=== PATIENT | female | born 1965 | race American Indian/Alaskan Native ===

== ENCOUNTER 2016-11-19 09:49 | Outpatient (CLI) | payer MEDICARE ==
--- NOTE | 2016-11-19 12:56 | Mammography Report ---
Bilateral digital screening mammogram with CAD. Comparison is made to the previous study on March 16, 2015. Findings: The breasts have a fibrofatty appearance, and the overall pattern is similar to the previous study. The MLO projections are suboptimal due to the patient's clinical condition, being in a wheelchair and unable to stand. There no mass lesions or suspicious calcifications. A single biopsy clip is noted on the left. There is no architectural distortion. Impression: Stable benign findings with above-noted technical limitations. BI-RADS code: 2. Recommendation: Annual screening.
== END 2016-11-19 09:50 | disposition home or self-care (01) ==
LOC: MAMMO 09:49
PROVIDERS: ATTEND Internal Medicine
DX: Z12.31 Encounter for screening mammogram for malignant neoplasm of breast (principal)
CPT/HCPCS: 77067; G0202

== ENCOUNTER 2017-12-17 09:13 | Outpatient (CLI) | payer MEDICARE ==
--- NOTE | 2017-12-18 16:13 | Mammography Report ---
BILATERAL DIGITAL SCREENING MAMMOGRAM with CAD: 12/17/17 09:13:00 CLINICAL: Routine screening. COMPARISON:11/19/16 FINDINGS: The examination was performed in a wheelchair, therefore positioning is less than optimal. The breasts are mostly fatty with scattered bilateral areas of fibroglandular density. Left inner biopsy clip. No mass, architectural distortion or suspicious calcifications. IMPRESSION: No mammographic evidence of malignancy. BI-RADS CATEGORY: 2 -- Benign RECOMMENDATION: Routine mammographic screening in one year. COMMENT: Patient follow-up letters are generated by our [employer] application.
== END 2017-12-17 09:14 | disposition home or self-care (01) ==
LOC: MAMMO 09:13
PROVIDERS: ATTEND Internal Medicine
DX: Z12.31 Encounter for screening mammogram for malignant neoplasm of breast (principal)
CPT/HCPCS: 77067

== ENCOUNTER 2018-09-27 07:17 | Day surgery (SDC) | payer MEDICARE ==
[2018-09-27] MEDS ORDERED: LACTATED RINGERS 1,000 ML IV SCH (08:00)
[2018-09-27] MEDS ORDERED: LEVAQUIN 250MG/50ML 250 MG/50 ML BAG IV NR (08:28)
[2018-09-27] MEDS ORDERED: DIPRIVAN 10 MG/ML IV ONE (09:15)
[2018-09-27] MEDS ORDERED: SUBLIMAZE ONE ×2 (09:15)
[2018-09-27] MEDS ORDERED: OMNIPAQUE (300 MG) IR ONE (09:55)
--- NOTE | 2018-09-27 10:31 | Post Operative Note ---
Date of procedure: 09/27/18 Pre-op diagnosis: heme Post-op diagnosis: same Findings: unremarkable Procedure: cysto rpgs Anesthesia: GETA Surgeon: SHASHANK ZAYAS Estimated blood loss: none Pathology: list (urine) Specimen disposition: to lab Condition: stable Disposition: PACU
--- NOTE | 2018-09-27 10:32 | Discharge Summary ---
Short Stay Discharge Plan Activity: other (no straining ) Weight Bearing Status: Full Weight Bearing Diet: regular, low fat, low cholesterol Special Instructions: other (inc fluids ) Follow up with: Baljinder RON MD [Primary Care Provider] - 7 Days SHASHANK ZAYAS MD [Staff Physician] - 6 Weeks
[2018-09-27] MEDS ORDERED: ZOFRAN IV PRN (10:41)
[2018-09-27] MEDS ORDERED: DILAUDID IV PRN (10:41)
--- NOTE | 2018-09-27 11:03 | Operative Report ---
PREOPERATIVE DIAGNOSES: Hematuria, mentally challenged. POSTOPERATIVE DIAGNOSES: Hematuria, mentally challenged. PROCEDURES: Cystoscopy, retrogrades examination. SURGEON: Brennan Benjamin M.D. ANESTHESIA: General. FINDINGS: This is a woman who is mentally challenged. She now presents with hematuria and for cystoscopy. DESCRIPTION OF PROCEDURE: The patient was brought to the operating room and placed on the operating table. Following induction of anesthesia, placed in lithotomy position, prepped and draped in usual sterile fashion. Cystourethroscopy showed a normal bladder. There was no trabeculation, no lesions. Bladder was well visualized with 30 and 70 degree lenses. Retrograde showed good filling, good drainage bilaterally. The patient tolerated the procedure well. No need for biopsy. Urine was sent for cytology. She was brought to recovery in stable condition. JOB# [id number] MARGI/FARIBA
[2018-09-27 14:47] VITALS: BP 145/78
--- NOTE | 2018-09-28 07:39 | Fluoroscopy Report ---
FLUOROSCOPY RETROGRADE UROGRAPHY: HISTORY: Chronic cystitis with hematuria. FINDINGS: Fluoroscopy was provided by radiology during retrograde urography by the urologist. 8 fluoroscopic images were captured. There is adequate filling of the ureters and intrarenal collecting systems with no filling defects or anatomic abnormalities identified. Please correlate with the procedural report if needed. IMPRESSION: Retrograde pyelograms within normal limits.
== END 2018-09-27 13:50 | disposition home or self-care (01) ==
LOC: OR 07:17
PROVIDERS: ATTEND Urology
DX: N30.21 Other chronic cystitis with hematuria (principal); F79 Unspecified intellectual disabilities; E78.00 Pure hypercholesterolemia, unspecified; I10 Essential (primary) hypertension; G47.30 Sleep apnea, unspecified; K21.9 Gastro-esophageal reflux disease without esophagitis; M19.90 Unspecified osteoarthritis, unspecified site; E03.9 Hypothyroidism, unspecified; Z98.890 Other specified postprocedural states; Z88.0 Allergy status to penicillin; Z79.899 Other long term (current) drug therapy; Z79.01 Long term (current) use of anticoagulants; Z90.710 Acquired absence of both cervix and uterus; Z87.442 Personal history of urinary calculi
CPT/HCPCS: 52005; 74420; 88112; J1170; J1956; J2704; J3010; J7120; Q9967; C1758

== ENCOUNTER 2019-04-25 10:17 | Outpatient (CLI) | payer MEDICARE ==
--- NOTE | 2019-04-25 15:20 | Mammography Report ---
BILATERAL DIGITAL SCREENING MAMMOGRAM WITH CAD INDICATION: Routine screening mammography. TECHNIQUE: Digital bilateral 2D mammography was obtained in the craniocaudal and mediolateral obliq ue projections were performed and a wheelchair. Therefore, positioning is suboptimal. This examinatio n was interpreted with the benefit of Computer-Aided Detection analysis. COMPARISON: 12/17/2017 FINDINGS: Breast Density: The breasts are almost entirely fatty. No mass, architectural distortion or suspicious calcifications. The arms obscure a portion of the upp er breast on the MLO views. A left lower inner biopsy clip with a stable low-density nodule at the cl ip. IMPRESSION:No mammographic evidence of malignancy. BI-RADS Category 2: Benign. No mammographic evidence of malignancy. Recommend routine screening ma mmography in one year. A "normal" or negative report should not discourage follow up or biopsy of a clinically significant f inding. A written summary of these findings will be mailed to the patient. The patient will be entered into a mammography reporting system which will generate a reminder letter for the patient's next appointmen t at the appropriate interval. The [employer] recommends yearly mammograms starting at age 40 and continuing as l wade as a woman is in good health. Breast MRI is recommended for women with an approximate 20-25% or greater lifetime risk of breast cancer, including women with a strong family history of breast or ova arielle cancer or who have been treated for Hodgkin's disease. Signer Name: Froilan Jauregui MD Signed: 04/25/2019 3:16 PM Workstation Name: [id number]
== END 2019-04-25 10:18 | disposition home or self-care (01) ==
LOC: MAMMO 10:17
PROVIDERS: ATTEND Internal Medicine
DX: Z12.31 Encounter for screening mammogram for malignant neoplasm of breast (principal); E78.00 Pure hypercholesterolemia, unspecified; I10 Essential (primary) hypertension; K21.9 Gastro-esophageal reflux disease without esophagitis; Z90.710 Acquired absence of both cervix and uterus; E03.9 Hypothyroidism, unspecified
CPT/HCPCS: 77067

== ENCOUNTER 2019-07-25 08:41 | Outpatient (CLI) | payer MEDICARE ==
--- NOTE | 2019-07-26 08:35 | Mammography Report ---
BONE DEXA CLINICAL: Postmenopausal. COMPARISON: 03/16/2015 and 06/07/2012 TECHNIQUE: 2 site bone DEXA performed on an Hologic scanner. FINDINGS: The average BMD of the lumbar spine L1-L4 is 0.911g/cm squared with a T score of -1.2-0.9 and a Z sco re of . This compares to 0.898g/cm squared on the last exam and represents a +1.4 % change from the l ast exam and a -2.7% change from [baseline]. The average BMD of the left hip is 0.741 g/cm squared with a T score of -1.6and a Z score of -1.3. Th is compares to 0.758 g/cm squared on the last exam and represents a -2.2 % change from the last exam and a -11.2% change from [baseline]. IMPRESSION: 1. WHO classification: Osteopenia with increased fracture risk based on both spine and left hip measu rements. 2. A modest improvement in spine BMD and a modest decline in left hip BMD compared to the last exam. 3.The FRAX 10 year fracture probability for a major osteoporotic fracture is 3.1 %. 4. The FRAX 10 year fracture probability for hip fracture is 0.3%. . Note:FRAX version 3.01. Fracture probability calculated for an untreated patient. Fracture probabilit y may be lower if the patient has received treatment. RECOMMENDATION: Clinical correlation and routine screening. Definitions: BMD equal bone mineral density T score = BMD related to peak bone mass of young adult ([place] expressed an standard deviation) Z score = age-matched BMD expressed in SD World health organization (WHO) diagnostic criteria Normal T score greater than equal to 1 standard deviation Osteopenia T score between -1 and -2.4 standard deviation Osteoporosis T score -2.5 standard deviation or below. Note: BMD is not the only risk factor for fracture; also consider factors such as the patient's age, risk of falling, previous osteoporotic fracture, family history of osteoporotic fractures, current sm oker and low body weight. Z scores are not calculated if greater than 80 years of age. Signer Name: Froilan Jauregui MD Signed: 07/26/2019 8:31 AM Workstation Name: [id number]
== END 2019-07-25 08:42 | disposition home or self-care (01) ==
LOC: MAMMO 08:41
PROVIDERS: ATTEND Internal Medicine
DX: M85.80 Other specified disorders of bone density and structure, unspecified site (principal); Z78.0 Asymptomatic menopausal state
CPT/HCPCS: 77080

== ENCOUNTER 2020-09-30 16:26 | Inpatient (IN) | payer MEDICARE ==
[2020-09-30] MEDS ORDERED: IPRATROPIUM 0.02% NEBU 2.5 ML IH ONE (16:51)
[2020-09-30] MEDS ORDERED: ALBUTEROL 2.5 MG/3 ML NEBU IH ONE (16:51)
[2020-09-30] MEDS ORDERED: AZITHROMYCIN/NS 500 MG/250 ML 500 MG/250 ML BAG IV ONE (17:00)
[2020-09-30] MEDS ORDERED: dexAMETHasone 20 MG/5 ML VIAL IV ONE (17:00)
[2020-09-30] MEDS ORDERED: cefTRIAXone/NS 1 GM/50 ML 1 GM/50 ML BAG IV ONE (17:00)
--- NOTE | 2020-09-30 17:04 | Emergency Department Report ---
ED Shortness of Breath HPI - General Chief Complaint: Dyspnea/Respdistress Stated Complaint: HEMANTH Time Seen by Provider: 09/30/20 16:51 Source: patient, EMS, old records reviewed Mode of arrival: Wheelchair Limitations: Other (cognitive delay) - History of Present Illness Initial Comments: Chief complaint: "Breathing" HPI: This is a 55-year-old female with history of heart disease, asthma, seizure disorder, migraine headache, obstructive sleep apnea, thyroid disease, hypertension, cognitive delay who presents with shortness of breath. Limited history obtained from EMS. I was unable to reach mother by phone who is primary caregiver. Patient had trouble breathing today. Mother gave patient nebulizer treatment. Patient still had persistent work of breathing with hypoxia 88% on room air. Oxygen saturation improved to 100% on 3 L nasal cannula. Patient has been admitted to [facility] on previous occasion. Barrel Handler was concerned for significant work of breathing and increased respiratory rate 28 breaths/min. Patient was only able to give 1 word answers to questions. She states "breathing" and "headache". MD Complaint: shortness of breath -: Gradual, This afternoon Severity: severe Consistency: constant Improves With: nothing Known History Of: asthma, other ("Heart problem") Associated Symptoms: other (Headache) - Related Data Home Medications Medication Instructions Recorded Confirmed Last Taken Calcium Carbonate [Calcium] 600 mg PO BID 09/14/14 09/27/18 09/25/18 Fish Oil/Borage/Flax/Om3,6,9 1 1 tab PO DAILY 09/14/14 09/27/18 09/22/18 [Spicewood 3-6-9 1,200 mg Softgel] Garlic [Odor Free Garlic] 1 tab PO DAILY 09/14/14 09/27/18 09/20/18 Levothyroxine Sodium 125 mcg PO DAILY 09/14/14 09/27/18 09/26/18 07:00 Lisinopril 20 mg PO DAILY 09/14/14 09/27/18 09/26/18 09:00 Multivitamin with Folic Acid [One 1 tab PO DAILY 09/14/14 09/27/18 09/26/18 09:00 Daily Multivitamin Tablet] Pravastatin Sodium 1 tab PO DAILY 09/14/14 09/27/18 09/26/18 21:00 amLODIPine 2.5 mg PO DAILY 09/14/14 09/27/18 09/26/18 09:00 carBAMazepine XR [TEGretol Xr] 200 mg PO BID 09/14/14 09/27/18 09/26/18 21:00 levETIRAcetam [Levetiracetam] 750 mg PO BID 09/14/14 09/27/18 09/27/18 08:30 propranoloL [Inderal] 40 mg PO BID 09/14/14 09/27/18 09/26/18 21:00 Clobazam [Onfi] 20 mg PO BID 09/17/18 09/27/18 09/26/18 21:00 Allergies Allergy/AdvReac Type Severity Reaction Status Date / Time Penicillins Allergy Swelling Verified 09/20/18 12:45 ED Review of Systems ROS: Stated complaint: HEMANTH Other details as noted in HPI Comment: Unobtainable due to pts medical conditions (Limited due to work of breathing and cognitive delay) ED Past Medical Hx - Past Medical History Previous Medical History?: Yes Hx Hypertension: Yes Hx GERD: Yes Hx Arthritis: Yes (HANDS) Hx Headaches / Migraines: Yes Hx Seizures: Yes (HAS SLIGHT SEIZURE EACH DAY) Hx Kidney Stones: Yes Hx Asthma: Yes Additional medical history: thyroid disease - Surgical History Hx Breast Surgery: Yes (CYST LEFT BREAST-BENIGN) - Social History Smoking Status: Unknown if ever smoked - Medications Home Medications: Home Medications Medication Instructions Recorded Confirmed Last Taken Type Calcium Carbonate [Calcium] 600 mg PO BID 09/14/14 09/27/18 09/25/18 History Fish Oil/Borage/Flax/Om3,6,9 1 1 tab PO DAILY 09/14/14 09/27/18 09/22/18 History [Spicewood 3-6-9 1,200 mg Softgel] Garlic [Odor Free Garlic] 1 tab PO DAILY 09/14/14 09/27/18 09/20/18 History Levothyroxine Sodium 125 mcg PO DAILY 09/14/14 09/27/18 09/26/18 07:00 History Lisinopril 20 mg PO DAILY 09/14/14 09/27/18 09/26/18 09:00 History Multivitamin with Folic Acid [One 1 tab PO DAILY 09/14/14 09/27/18 09/26/18 09:00 History Daily Multivitamin Tablet] Pravastatin Sodium 1 tab PO DAILY 09/14/14 09/27/18 09/26/18 21:00 History amLODIPine 2.5 mg PO DAILY 09/14/14 09/27/18 09/26/18 09:00 History carBAMazepine XR [TEGretol Xr] 200 mg PO BID 09/14/14 09/27/18 09/26/18 21:00 History levETIRAcetam [Levetiracetam] 750 mg PO BID 09/14/14 09/27/18 09/27/18 08:30 History propranoloL [Inderal] 40 mg PO BID 09/14/14 09/27/18 09/26/18 21:00 History Clobazam [Onfi] 20 mg PO BID 09/17/18 09/27/18 09/26/18 21:00 History ED Physical Exam - General Limitations: Other General appearance: alert, in distress, other (Patient appears out of breath speaking 1 word sentences with effort obvious work of breathing with excessive muscle use) - Head Head exam: Present: atraumatic, normocephalic - Eye Eye exam: Present: normal appearance - ENT ENT exam: Present: mucous membranes moist - Neck Neck exam: Present: normal inspection, full ROM. Absent: tenderness, meningismus - Respiratory Respiratory exam: Present: respiratory distress, accessory muscle use, decreased breath sounds, prolonged expiratory, other (Abdominal retractions). Absent: wheezes, rales, rhonchi - Cardiovascular Cardiovascular Exam: Present: regular rate, normal rhythm, normal heart sounds. Absent: systolic murmur, diastolic murmur, rubs, gallop - GI/Abdominal GI/Abdominal exam: Present: soft, normal bowel sounds. Absent: distended, tenderness, guarding, rebound - Extremities Exam Extremities exam: Present: normal inspection - Neurological Exam Neurological exam: Present: alert - Psychiatric Psychiatric exam: Present: depressed, flat affect - Skin Skin exam: Present: warm, dry, intact, normal color. Absent: rash ED Course Vital Signs 09/30/20 09/30/20 09/30/20 16:51 17:08 18:23 Temperature 98.5 F Pulse Rate 94 H 80 Pulse Rate [ 102 H Anterior Bilateral Throughout] Respiratory 28 H 22 Rate Respiratory 18 Rate [Anterior Bilateral Throughout] Blood Pressure 162/104 127/83 [Right] O2 Sat by Pulse 96 100 Oximetry - Reevaluation(s) Reevaluation #1: 09/30/20 18:38 After receiving albuterol continuous nebulizer therapy with Atrovent, patient's respiratory status has improved. Tachypnea has decreased. ED Medical Decision Making - Lab Data Result diagrams: 09/30/20 17:15 09/30/20 17:15 Laboratory Results - last 24 hr 09/30/20 09/30/20 09/30/20 17:15 17:15 17:15 WBC 5.4 RBC 4.58 Hgb 14.7 H Hct 44.0 H MCV 96 MCH 32 MCHC 33 RDW 14.1 Plt Count 276 Lymph % (Auto) 34.2 Cotton % (Auto) 10.4 H Eos % (Auto) 3.2 Baso % (Auto) 1.3 Lymph # (Auto) 1.9 Cotton # (Auto) 0.6 Eos # (Auto) 0.2 Baso # (Auto) 0.1 Seg Neutrophils % 50.9 Seg Neutrophils # 2.8 D-Dimer ABG pH ABG pCO2 ABG pO2 ABG HCO3 ABG O2 Saturation ABG O2 Content ABG Base Excess ABG Hemoglobin ABG Carboxyhemoglobin ABG Methemoglobin Oxyhemoglobin FiO2 Sodium 136 L Potassium 4.3 Chloride 95.0 L Carbon Dioxide 35 H Anion Gap 10 BUN 15 Creatinine 0.8 Estimated GFR > 60 BUN/Creatinine Ratio 19 Glucose 106 H Calcium 10.2 Ferritin Total Bilirubin < 0.20 AST 20 ALT 20 Alkaline Phosphatase 74 Lactate Dehydrogenase Troponin T < 0.010 C-Reactive Protein NT-Pro-B Natriuret Pep 26.08 Total Protein 8.1 Albumin 4.3 Albumin/Globulin Ratio 1.1 09/30/20 09/30/20 09/30/20 17:15 17:15 17:15 WBC RBC Hgb Hct MCV MCH MCHC RDW Plt Count Lymph % (Auto) Cotton % (Auto) Eos % (Auto) Baso % (Auto) Lymph # (Auto) Cotton # (Auto) Eos # (Auto) Baso # (Auto) Seg Neutrophils % Seg Neutrophils # D-Dimer < 135.00 ABG pH ABG pCO2 ABG pO2 ABG HCO3 ABG O2 Saturation ABG O2 Content ABG Base Excess ABG Hemoglobin ABG Carboxyhemoglobin ABG Methemoglobin Oxyhemoglobin FiO2 Sodium Potassium Chloride Carbon Dioxide Anion Gap BUN Creatinine Estimated GFR BUN/Creatinine Ratio Glucose 107 H Calcium Ferritin 37.1 Total Bilirubin AST ALT Alkaline Phosphatase Lactate Dehydrogenase 151 Troponin T C-Reactive Protein 1.70 H NT-Pro-B Natriuret Pep Total Protein Albumin Albumin/Globulin Ratio 09/30/20 18:05 WBC RBC Hgb Hct MCV MCH MCHC RDW Plt Count Lymph % (Auto) Cotton % (Auto) Eos % (Auto) Baso % (Auto) Lymph # (Auto) Cotton # (Auto) Eos # (Auto) Baso # (Auto) Seg Neutrophils % Seg Neutrophils # D-Dimer ABG pH 7.333 L ABG pCO2 68.5 ABG pO2 78.0 L ABG HCO3 35.6 H ABG O2 Saturation 95.2 ABG O2 Content 19.0 ABG Base Excess 7.1 H ABG Hemoglobin 14.6 ABG Carboxyhemoglobin 2.0 ABG Methemoglobin 0.5 Oxyhemoglobin 92.8 L FiO2 28 Sodium Potassium Chloride Carbon Dioxide Anion Gap BUN Creatinine Estimated GFR BUN/Creatinine Ratio Glucose Calcium Ferritin Total Bilirubin AST ALT Alkaline Phosphatase Lactate Dehydrogenase Troponin T C-Reactive Protein NT-Pro-B Natriuret Pep Total Protein Albumin Albumin/Globulin Ratio - Radiology Data Radiology results: report reviewed, image reviewed CHEST 1 VIEW INDICATION / CLINICAL INFORMATION: Dyspnea. COMPARISON: 11/18/2011 FINDINGS: SUPPORT DEVICES: None. HEART / MEDIASTINUM: No significant abnormality. LUNGS / PLEURA: Mild pulmonary vascular congestion No pneumothorax. ADDITIONAL FINDINGS: No significant additional findings. IMPRESSION: Suboptimal inspiration with possible mild pulmonary vascular congestion - Medical Decision Making Acute respiratory failure hypoxia: Status asthmaticus. Patient requires noninvasive positive pressure ventilation with history of obstructive sleep apnea and respiratory acidosis. D-dimer within normal limits. Reported history of heart disease: BNP within normal limits. Equivocal findings on chest radiograph: Poor respiratory effort inspiratory effort on chest radiograph. Must consider atypical pneumonia Suspected COVID-19 considering current pandemic. Contact droplet precautions initiated. Dexamethasone antibiotics initiated in emergency department. COVID- 19 test ordered. COVID-19 markers ferritin and CRP LDH D-dimer all within normal limits. Critical Care Time: Yes Critical care time in (mins) excluding proc time.: 40 Critical care attestation.: If time is entered above; I have spent that time in minutes in the direct care of this critically ill patient, excluding procedure time. 40 minutes of critical care time excluding procedures were used in the care of the patient. I came immediately to the bedside upon patient's arrival. I obtained history from EMS at the bedside. I immediately contacted respiratory therapist to assist with care. I was concerned for diminished breath sounds poor air movement. I was concerned for patient's obvious work of breathing. I was concerned for imminent airway compromise. I discussed treatment plan with the nursing team members. I reviewed electronic record. I attempted to contact mother per phone several times. Patient required multiple interventions and reassessments. ED Disposition Clinical Impression: Acute respiratory failure with hypoxia, Status asthmaticus, Suspected COVID-19 virus infection Disposition: OP ADMIT IP TO THIS HOSP Is pt being admited?: Yes Does the pt Need Aspirin: No Condition: Fair
[2020-09-30 17:32] LABS: Basophils # (Auto) 0.1 K/mm3 (0.0-0.1); Basophils % (Auto) 1.3 % (0.0-1.8); Eosinophils # (Auto) 0.2 K/mm3 (0.0-0.4); Eosinophils % (Auto) 3.2 % (0.0-4.3); Hemoglobin 14.7 gm/dl (10.1-14.3); Lymphocytes # (Auto) 1.9 K/mm3 (1.2-5.4); Lymphocytes % (Auto) 34.2 % (13.4-35.0); Mean Corpuscular HGB Conc 33 % (30-34); Mean Corpuscular Volume 96 fl (79-97); Monocytes # (Auto) 0.6 K/mm3 (0.0-0.8); Monocytes % (Auto) 10.4 % (0.0-7.3); Platelet Count 276 K/mm3 (140-440); Red Blood Count 4.58 M/mm3 (3.65-5.03); Red Cell Distribution Width 14.1 % (13.2-15.2)
--- NOTE | 2020-09-30 17:32 | XRay Report ---
CHEST 1 VIEW INDICATION / CLINICAL INFORMATION: Dyspnea. COMPARISON: 11/18/2011 FINDINGS: SUPPORT DEVICES: None. HEART / MEDIASTINUM: No significant abnormality. LUNGS / PLEURA: Mild pulmonary vascular congestion No pneumothorax. ADDITIONAL FINDINGS: No significant additional findings. IMPRESSION: Suboptimal inspiration with possible mild pulmonary vascular congestion Signer Name: Yusuf Figueroa MD FACR Signed: 09/30/2020 5:28 PM Workstation Name: [id number]
[2020-09-30 17:51] LABS: Alanine Aminotransferase 20 units/L (7-56); Albumin 4.3 g/dL (3.9-5); BUN/Creatinine Ratio 19; Blood Urea Nitrogen 15 mg/dL (7-17); Calcium 10.2 mg/dL (8.4-10.2); Hemolysis Index 15
[2020-09-30 17:52] LABS: C-Reactive Protein 1.7 mg/dL (0.00-1.30)
[2020-09-30 18:22] LABS: ABG Base Excess 7.1 mmol/L (-2.0-3.0); ABG HCO3 35.6 mmol/L (20.0-26.0); ABG Methemoglobin 0.5 % (0.0-1.5); ABG Oxygen Saturation 95.2 % (95.0-99.0); ABG PCO2 68.5 mm Hg; ABG PH 7.333 pH Units (7.350-7.450)
--- NOTE | 2020-10-01 00:25 | History and Physical Report ---
History of Present Illness Date of examination: 10/01/20 Date of admission: 09/30/20 18:38 Chief complaint: Severe shortness of breath and wheezing for 1 day History of present illness: 55-year-old female with history of asthma and seizure disorder and obstructive sleep apnea and hypothyroidism comes in for increasing shortness of breath and for 1 day. Patient was hypoxic at 88% on room air. Oxygen saturation improved to 100% on 3 L nasal cannula oxygen. Patient was admitted to [facility] recently. Patient has significant work of breathing and increased respiratory rate of 28 breaths/min. No fever. No exposure to coronavirus. - Past Medical History Previous Medical History?: Yes Hypertension: Yes GERD: Yes Arthritis: Yes (HANDS) Headaches / Migraines: Yes Seizures: Yes (HAS SLIGHT SEIZURE EACH DAY) Kidney Stones: Yes Asthma: Yes Additional medical history: thyroid disease - Surgical History Hx Breast Surgery: Yes (CYST LEFT BREAST-BENIGN) - Social History Smoking Status: Unknown if ever smoked - Medications Home Medications: Home Medications Medication Instructions Recorded Confirmed Last Taken Type Calcium Carbonate [Calcium] 600 mg PO BID 09/14/14 09/27/18 09/25/18 History Fish Oil/Borage/Flax/Om3,6,9 1 1 tab PO DAILY 09/14/14 09/27/18 09/22/18 History [[place] 3-6-9 1,200 mg Softgel] Garlic [Odor Free Garlic] 1 tab PO DAILY 09/14/14 09/27/18 09/20/18 History Levothyroxine Sodium 125 mcg PO DAILY 09/14/14 09/27/18 09/26/18 07:00 History Lisinopril 20 mg PO DAILY 09/14/14 09/27/18 09/26/18 09:00 History Multivitamin with Folic Acid [One 1 tab PO DAILY 09/14/14 09/27/18 09/26/18 09:00 History Daily Multivitamin Tablet] Pravastatin Sodium 1 tab PO DAILY 09/14/14 09/27/18 09/26/18 21:00 History amLODIPine 2.5 mg PO DAILY 09/14/14 09/27/18 09/26/18 09:00 History carBAMazepine XR [TEGretol Xr] 200 mg PO BID 09/14/14 09/27/18 09/26/18 21:00 History levETIRAcetam [Levetiracetam] 750 mg PO BID 09/14/14 09/27/18 09/27/18 08:30 History propranoloL [Inderal] 40 mg PO BID 09/14/14 09/27/18 09/26/18 21:00 History Clobazam [Onfi] 20 mg PO BID 09/17/18 09/27/18 09/26/18 21:00 History Review of Systems ROS: Constitutional severe shortness of breath and wheezing HEENT no sore throat no post nasal drip no diplopia Neck no neck stiffness no lymph gland enlargement Chest and lungs severe shortness of breath and wheezing CVS no chest pain no diaphoresis no palpitations GI no nausea no vomiting no diarrhea Genitourinary system no dysuria no flank pain Musculoskeletal system no muscle pains no joint pains OBSTETRICS GYNECOLOGY MD no syncope no seizures Skin no rash no itching Psychiatric no depression no homicidal or suicidal tendencies Hematologic no lymphedema or bruising Endocrine no polydipsia no polyuria no cold intolerance no heat intolerance Medications and Allergies Allergies Allergy/AdvReac Type Severity Reaction Status Date / Time Penicillins Allergy Swelling Verified 09/20/18 12:45 Home Medications Medication Instructions Recorded Confirmed Last Taken Type Calcium Carbonate [Calcium] 600 mg PO BID 09/14/14 09/27/18 09/25/18 History Fish Oil/Borage/Flax/Om3,6,9 1 1 tab PO DAILY 09/14/14 09/27/18 09/22/18 History [[place] 3-6-9 1,200 mg Softgel] Garlic [Odor Free Garlic] 1 tab PO DAILY 09/14/14 09/27/18 09/20/18 History Levothyroxine Sodium 125 mcg PO DAILY 09/14/14 09/27/18 09/26/18 07:00 History Lisinopril 20 mg PO DAILY 09/14/14 09/27/18 09/26/18 09:00 History Multivitamin with Folic Acid [One 1 tab PO DAILY 09/14/14 09/27/18 09/26/18 09:00 History Daily Multivitamin Tablet] Pravastatin Sodium 1 tab PO DAILY 09/14/14 09/27/18 09/26/18 21:00 History amLODIPine 2.5 mg PO DAILY 09/14/14 09/27/18 09/26/18 09:00 History carBAMazepine XR [TEGretol Xr] 200 mg PO BID 09/14/14 09/27/18 09/26/18 21:00 History levETIRAcetam [Levetiracetam] 750 mg PO BID 09/14/14 09/27/18 09/27/18 08:30 History propranoloL [Inderal] 40 mg PO BID 09/14/14 09/27/18 09/26/18 21:00 History Clobazam [Onfi] 20 mg PO BID 09/17/18 09/27/18 09/26/18 21:00 History Exam - Constitutional Vitals: Temp Pulse Resp BP Pulse Ox 97.7 F 84 22 158/99 99 09/30/20 22:16 09/30/20 22:16 09/30/20 22:16 09/30/20 22:16 09/30/20 22:16 General appearance: Present: severe distress - EENT Eyes: Present: PERRL ENT: hearing intact, clear oral mucosa - Neck Neck: Present: supple, normal ROM - Respiratory Respiratory effort: normal Respiratory: bilateral: CTA, rhonchi - Cardiovascular Heart rate: 78 Rhythm: regular Heart Sounds: Present: S1 & S2. Absent: rub, click - Extremities Extremities: no ischemia, pulses intact, pulses symmetrical, No edema Peripheral Pulses: within normal limits - Abdominal General gastrointestinal: Present: soft, non-tender, non-distended, normal bowel sounds Female genitourinary: Present: normal - Integumentary Integumentary: Present: clear, warm, dry - Musculoskeletal Musculoskeletal: gait normal, strength equal bilaterally - Psychiatric Psychiatric: appropriate mood/affect, intact judgment & insight - Neurologic Neurologic: CNII-XII intact, moves all extremities HEART Score - HEART Score History: Moderately suspicious Age: 45-65 Risk factors: 1-2 risk factors Troponin: Troponin T < 0.010 ng/mL (0.00-0.029) 09/30/20 17:15 Troponin: < normal limit - Critical Actions Critical Actions: 0-3 pts:0.9-1.7%risk of adverse cardiac event.Candidate for discharge Results - Labs CBC & Chem 7: 09/30/20 17:15 09/30/20 17:15 Labs: Laboratory Last Values WBC 5.4 K/mm3 (4.5-11.0) 09/30/20 17:15 RBC 4.58 M/mm3 (3.65-5.03) 09/30/20 17:15 Hgb 14.7 gm/dl (10.1-14.3) H 09/30/20 17:15 Hct 44.0 % (30.3-42.9) H 09/30/20 17:15 MCV 96 fl (79-97) 09/30/20 17:15 MCH 32 pg (28-32) 09/30/20 17:15 MCHC 33 % (30-34) 09/30/20 17:15 RDW 14.1 % (13.2-15.2) 09/30/20 17:15 Plt Count 276 K/mm3 (140-440) 09/30/20 17:15 Lymph % (Auto) 34.2 % (13.4-35.0) 09/30/20 17:15 [place] % (Auto) 10.4 % (0.0-7.3) H 09/30/20 17:15 Eos % (Auto) 3.2 % (0.0-4.3) 09/30/20 17:15 Baso % (Auto) 1.3 % (0.0-1.8) 09/30/20 17:15 Lymph # (Auto) 1.9 K/mm3 (1.2-5.4) 09/30/20 17:15 [place] # (Auto) 0.6 K/mm3 (0.0-0.8) 09/30/20 17:15 Eos # (Auto) 0.2 K/mm3 (0.0-0.4) 09/30/20 17:15 Baso # (Auto) 0.1 K/mm3 (0.0-0.1) 09/30/20 17:15 Seg Neutrophils % 50.9 % (40.0-70.0) 09/30/20 17:15 Seg Neutrophils # 2.8 K/mm3 (1.8-7.7) 09/30/20 17:15 D-Dimer < 135.00 ng/mlDDU (0-234) 09/30/20 17:15 ABG pH 7.333 pH Units (7.350-7.450) L 09/30/20 18:05 ABG pCO2 68.5 mm Hg 09/30/20 18:05 ABG pO2 78.0 mm Hg (80.0-90.0) L 09/30/20 18:05 ABG HCO3 35.6 mmol/L (20.0-26.0) H 09/30/20 18:05 ABG O2 Saturation 95.2 % (95.0-99.0) 09/30/20 18:05 ABG O2 Content 19.0 (0.0-44) 09/30/20 18:05 ABG Base Excess 7.1 mmol/L (-2.0-3.0) H 09/30/20 18:05 ABG Hemoglobin 14.6 gm/dl (12.0-16.0) 09/30/20 18:05 ABG Carboxyhemoglobin 2.0 % (0.0-5.0) 09/30/20 18:05 ABG Methemoglobin 0.5 % (0.0-1.5) 09/30/20 18:05 Oxyhemoglobin 92.8 % (95.0-99.0) L 09/30/20 18:05 FiO2 28 % 09/30/20 18:05 Sodium 136 mmol/L (137-145) L 09/30/20 17:15 Potassium 4.3 mmol/L (3.6-5.0) 09/30/20 17:15 Chloride 95.0 mmol/L (98-107) L 09/30/20 17:15 Carbon Dioxide 35 mmol/L (22-30) H 09/30/20 17:15 Anion Gap 10 mmol/L 09/30/20 17:15 BUN 15 mg/dL (7-17) 09/30/20 17:15 Creatinine 0.8 mg/dL (0.6-1.2) 09/30/20 17:15 Estimated GFR > 60 ml/min 09/30/20 17:15 BUN/Creatinine Ratio 19 % 09/30/20 17:15 Glucose 106 mg/dL (65-100) H 09/30/20 17:15 Glucose 107 mg/dL (65-100) H 09/30/20 17:15 Calcium 10.2 mg/dL (8.4-10.2) 09/30/20 17:15 Ferritin 37.1 ng/mL (10.0-200.0) 09/30/20 17:15 Total Bilirubin < 0.20 mg/dL (0.1-1.2) 09/30/20 17:15 AST 20 units/L (5-40) 09/30/20 17:15 ALT 20 units/L (7-56) 09/30/20 17:15 Alkaline Phosphatase 74 units/L (35-129) 09/30/20 17:15 Lactate Dehydrogenase 151 units/L (91-180) 09/30/20 17:15 Troponin T < 0.010 ng/mL (0.00-0.029) 09/30/20 17:15 C-Reactive Protein 1.70 mg/dL (0.00-1.30) H 09/30/20 17:15 NT-Pro-B Natriuret Pep 26.08 pg/mL (0-900) 09/30/20 17:15 Total Protein 8.1 g/dL (6.3-8.2) 09/30/20 17:15 Albumin 4.3 g/dL (3.9-5) 09/30/20 17:15 Albumin/Globulin Ratio 1.1 % 09/30/20 17:15 Microbiology: Microbiology 09/30/20 17:15 Peripheral/Venous Blood Culture - Preliminary Culture in Progress 09/30/20 17:15 Peripheral/Venous Blood Culture - Preliminary Culture in Progress - Imaging and Cardiology EKG: report reviewed Chest x-ray: report reviewed Imaging and Cardiology: Chest x-ray IMPRESSION: Suboptimal inspiration with possible mild pulmonary vascular congestion Harris/IV: Voiding Method Toilet IV Catheter Type [Right Hand] INT / Saline Lock Assessment and Plan Advance Directives: Yes (Full code) VTE prophylaxis?: Chemical (Full code) Plan of care discussed with patient/family: Yes - Patient Problems (1) Acute respiratory failure with hypoxia Current Visit: Yes Status: Acute Plan to address problem: Oxygen supplementation as necessary (2) Status asthmaticus Current Visit: Yes Status: Acute Plan to address problem: Nebulizer treatments every 3 as needed and [id number]. IV Solu-Medrol initiated. IV Levaquin initiated. Pulmonary consult requested. (3) Suspected COVID-19 virus infection Current Visit: Yes Status: Acute Plan to address problem: Coronavirus PCR requested Unlikely. (4) Hypothyroidism (acquired) Current Visit: Yes Status: Chronic Plan to address problem: Continue Levoxyl and check TSH (5) Hypertension Current Visit: Yes Status: Chronic Qualifiers: Hypertension type: essential hypertension Qualified Code(s): I10 - Essential (primary) hypertension Plan to address problem: Continue antihypertensives and adjust medications (6) Seizure disorder Current Visit: Yes Status: Chronic Plan to address problem: Continue Keppra (7) Hyperlipidemia Current Visit: Yes Status: Chronic Qualifiers: Hyperlipidemia type: mixed hyperlipidemia Qualified Code(s): E78.2 - Mixed hyperlipidemia Plan to address problem: Continue statins (8) DVT prophylaxis Current Visit: Yes Status: Acute Plan to address problem: On Lovenox and GI prophylaxis
[2020-10-01] MEDS ORDERED: ONDANSETRON 4 MG/2 ML INJ IV PRN (00:26)
[2020-10-01] MEDS ORDERED: ACETAMINOPHEN 325 MG TAB PO PRN (00:26)
[2020-10-01] MEDS ORDERED: HYDROmorphone 1 MG/1 ML INJ IV PRN (00:26)
[2020-10-01] MEDS ORDERED: oxyCODONE /ACETAMINOPHEN 5-325MG TAB PO PRN (00:26)
[2020-10-01] MEDS ORDERED: METOCLOPRAMIDE 10 MG/2 ML INJ IV PRN (00:26)
[2020-10-01] MEDS ORDERED: IPRATROPIUM/ALBUTEROL SULFATE 3 ML AMPUL.NEB IH PRN (00:28)
[2020-10-01] MEDS ORDERED: LEVETIRACETAM 750 MG PO SCH (00:30)
[2020-10-01] MEDS ORDERED: CALCIUM CARBONATE 600 MG PO SCH (00:30)
[2020-10-01] MEDS ORDERED: CLOBAZAM 10 MG PO SCH ×2 (00:30→22:00)
[2020-10-01] MEDS ORDERED: ALBUTEROL 2.5 MG/3 ML NEBU IH PRN (00:36)
[2020-10-01] MEDS ORDERED: methylPREDNISolone Sod Succinate 125 MG/2 ML INJ IV SCH (01:00)
[2020-10-01] MEDS ORDERED: FAMOTIDINE 20 MG/2 ML INJ IV SCH (01:00)
[2020-10-01] MEDS: carBAMazepine XR 200 MG TAB PO SCH ×3 (07:40→22:09)
[2020-10-01] MEDS: levETIRAcetam 500 MG TAB PO SCH ×3 (07:41→22:08)
[2020-10-01] MEDS: HEPARIN 5,000 UNIT/1 ML VIAL SUB-Q SCH ×3 (07:41→22:09)
[2020-10-01] MEDS: PROPRANOLOL 40 MG TAB PO SCH ×3 (07:42→22:08)
[2020-10-01] MEDS: CALCIUM CARBONATE 648 MG TAB PO SCH ×3 (07:42→22:09)
--- NOTE | 2020-10-01 07:59 | Progress Note ---
Assessment and Plan Assessment and plan: 55-year-old female with history of asthma and seizure disorder, cognitive delay and obstructive sleep apnea and hypothyroidism comes in for increasing shortness of breath and for 1 day. Patient was hypoxic at 88% on room air. Oxygen saturation improved to 100% on 3 L nasal cannula oxygen. Patient was admitted to [facility] recently. Patient has significant work of breathing and increased respiratory rate of 28 breaths/min. No fever. No exposure to coronavirus. ED physician was able to obtain further information from the patient's mom who is the primary caregiver: Patient had trouble breathing today. Mother gave patient nebulizer treatment. Patient still had persistent work of breathing with hypoxia 88% on room air. Oxygen saturation improved to 100% on 3 L nasal cannula. Patient has been admitted to [facility] on previous occasion. Patient was only able to give 1 word answers to questions. She states "breathing" and "headache". CXR: IMPRESSION: Suboptimal inspiration with possible mild pulmonary vascular congestion 2/: Will give a dose of lasix, considering noted pulmonary vascular congestion, will check BNP attempt to find out who is her building inspector, cxr showed a device, per mother this is a defibrillator placed for the seizures but did not work and has taken off the battery. Per mother she is bedbound due repeated seizure which throws her down to the floor, they do some exercise with her but has to be monitor closely. Continue evaluating for COVID-19. BMI listed on the [employer] is incorrect. No evidence of malnutrition noted. No new seizure disorder. Will obtain Echocardiogram. Per mother she has Nebulizers at home. Aspiration precaution. I have discussed with the mother in detail will obtain PT OT evaluate for some Exercise is not necessary to assess ambulation. (1) Acute respiratory failure with hypoxia Current Visit: Yes Status: Acute Plan to address problem: Oxygen supplementation as necessary (2) Status asthmaticus Current Visit: Yes Status: Acute Plan to address problem: Nebulizer treatments every 3 as needed and [id number]. IV Solu-Medrol initiated. IV Levaquin initiated. Pulmonary consult requested. (3) Suspected COVID-19 virus infection Current Visit: Yes Status: Acute Plan to address problem: Coronavirus PCR requested Unlikely. (4) Hypothyroidism (acquired) Current Visit: Yes Status: Chronic Plan to address problem: Continue Levoxyl and check TSH (5) Hypertension Current Visit: Yes Status: Chronic Qualifiers: Hypertension type: essential hypertension Qualified Code(s): I10 - Essential (primary) hypertension Plan to address problem: Continue antihypertensives and adjust medications (6) Seizure disorder Current Visit: Yes Status: Chronic Plan to address problem: Continue Keppra (7) Hyperlipidemia Current Visit: Yes Status: Chronic Qualifiers: Hyperlipidemia type: mixed hyperlipidemia Qualified Code(s): E78.2 - Mixed hyperlipidemia Plan to address problem: Continue statins (8) DVT prophylaxis Current Visit: Yes Status: Acute Plan to address problem: On Lovenox and GI prophylaxis History Interval history: Patient seen and examined this morning no new seizures noted. Still on oxygen. Hospitalist Physical - Physical exam Narrative exam: VITAL SIGNS: Reviewed. GENERAL: The patient appears normally developed, obese, vital signs as documented. HEAD: No signs of head trauma. EYES: Pupils are equal. Extraocular motions intact. EARS: Hearing grossly intact. MOUTH: Oropharynx is normal. NECK: No adenopathy, no JVD. CHEST: Chest with diminished breath sounds bilaterally. No wheezes, rales, or rhonchi. CARDIAC: Regular rate and rhythm. S1 and S2, without murmurs, gallops, or rubs. VASCULAR: No Edema. Peripheral pulses normal and equal in all extremities. ABDOMEN: Soft, non tender and non distended. No rebound or guarding, and no masses palpated. Bowel Sounds normal. MUSCULOSKELETAL: Good range of motion of all major joints. Extremities without clubbing, cyanosis or edema. NEUROLOGIC EXAM: Alert and oriented x 3 No focal sensory or strength deficits. Speech normal. Follows commands. PSYCHIATRIC: Mood normal. SKIN: detail exam as documented in skin assessment - Constitutional Vitals: Temp Pulse Resp BP Pulse Ox 97.6 F 74 20 122/77 98 10/01/20 05:16 10/01/20 05:16 10/01/20 05:16 10/01/20 05:16 10/01/20 05:16 General appearance: Present: severe distress HEART Score - HEART Score Age: 45-65 Risk factors: 1-2 risk factors Troponin: Troponin T < 0.010 ng/mL (0.00-0.029) 09/30/20 17:15 Troponin: < normal limit - Critical Actions Critical Actions: 0-3 pts:0.9-1.7%risk of adverse cardiac event.Candidate for discharge Results - Labs CBC & Chem 7: 09/30/20 17:15 09/30/20 17:15 Labs: Laboratory Last Values WBC 5.4 K/mm3 (4.5-11.0) 09/30/20 17:15 RBC 4.58 M/mm3 (3.65-5.03) 09/30/20 17:15 Hgb 14.7 gm/dl (10.1-14.3) H 09/30/20 17:15 Hct 44.0 % (30.3-42.9) H 09/30/20 17:15 MCV 96 fl (79-97) 09/30/20 17:15 MCH 32 pg (28-32) 09/30/20 17:15 MCHC 33 % (30-34) 09/30/20 17:15 RDW 14.1 % (13.2-15.2) 09/30/20 17:15 Plt Count 276 K/mm3 (140-440) 09/30/20 17:15 Lymph % (Auto) 34.2 % (13.4-35.0) 09/30/20 17:15 [place] % (Auto) 10.4 % (0.0-7.3) H 09/30/20 17:15 Eos % (Auto) 3.2 % (0.0-4.3) 09/30/20 17:15 Baso % (Auto) 1.3 % (0.0-1.8) 09/30/20 17:15 Lymph # (Auto) 1.9 K/mm3 (1.2-5.4) 09/30/20 17:15 [place] # (Auto) 0.6 K/mm3 (0.0-0.8) 09/30/20 17:15 Eos # (Auto) 0.2 K/mm3 (0.0-0.4) 09/30/20 17:15 Baso # (Auto) 0.1 K/mm3 (0.0-0.1) 09/30/20 17:15 Seg Neutrophils % 50.9 % (40.0-70.0) 09/30/20 17:15 Seg Neutrophils # 2.8 K/mm3 (1.8-7.7) 09/30/20 17:15 D-Dimer < 135.00 ng/mlDDU (0-234) 09/30/20 17:15 ABG pH 7.333 pH Units (7.350-7.450) L 09/30/20 18:05 ABG pCO2 68.5 mm Hg 09/30/20 18:05 ABG pO2 78.0 mm Hg (80.0-90.0) L 09/30/20 18:05 ABG HCO3 35.6 mmol/L (20.0-26.0) H 09/30/20 18:05 ABG O2 Saturation 95.2 % (95.0-99.0) 09/30/20 18:05 ABG O2 Content 19.0 (0.0-44) 09/30/20 18:05 ABG Base Excess 7.1 mmol/L (-2.0-3.0) H 09/30/20 18:05 ABG Hemoglobin 14.6 gm/dl (12.0-16.0) 09/30/20 18:05 ABG Carboxyhemoglobin 2.0 % (0.0-5.0) 09/30/20 18:05 ABG Methemoglobin 0.5 % (0.0-1.5) 09/30/20 18:05 Oxyhemoglobin 92.8 % (95.0-99.0) L 09/30/20 18:05 FiO2 28 % 09/30/20 18:05 Sodium 136 mmol/L (137-145) L 09/30/20 17:15 Potassium 4.3 mmol/L (3.6-5.0) 09/30/20 17:15 Chloride 95.0 mmol/L (98-107) L 09/30/20 17:15 Carbon Dioxide 35 mmol/L (22-30) H 09/30/20 17:15 Anion Gap 10 mmol/L 09/30/20 17:15 BUN 15 mg/dL (7-17) 09/30/20 17:15 Creatinine 0.8 mg/dL (0.6-1.2) 09/30/20 17:15 Estimated GFR > 60 ml/min 09/30/20 17:15 BUN/Creatinine Ratio 19 % 09/30/20 17:15 Glucose 106 mg/dL (65-100) H 09/30/20 17:15 Glucose 107 mg/dL (65-100) H 09/30/20 17:15 Hemoglobin A1c 5.6 % (4-6) 09/30/20 17:15 Calcium 10.2 mg/dL (8.4-10.2) 09/30/20 17:15 Ferritin 37.1 ng/mL (10.0-200.0) 09/30/20 17:15 Total Bilirubin < 0.20 mg/dL (0.1-1.2) 09/30/20 17:15 AST 20 units/L (5-40) 09/30/20 17:15 ALT 20 units/L (7-56) 09/30/20 17:15 Alkaline Phosphatase 74 units/L (35-129) 09/30/20 17:15 Lactate Dehydrogenase 151 units/L (91-180) 09/30/20 17:15 Troponin T < 0.010 ng/mL (0.00-0.029) 09/30/20 17:15 C-Reactive Protein 1.70 mg/dL (0.00-1.30) H 09/30/20 17:15 NT-Pro-B Natriuret Pep 26.08 pg/mL (0-900) 09/30/20 17:15 Total Protein 8.1 g/dL (6.3-8.2) 09/30/20 17:15 Albumin 4.3 g/dL (3.9-5) 09/30/20 17:15 Albumin/Globulin Ratio 1.1 % 09/30/20 17:15 Microbiology: Microbiology 09/30/20 17:15 Peripheral/Venous Blood Culture - Preliminary Culture in Progress 09/30/20 17:15 Peripheral/Venous Blood Culture - Preliminary Culture in Progress Harris/IV: Voiding Method Toilet IV Catheter Type [Right Hand] INT / Saline Lock Active Medications - Current Medications Current Medications: Generic Name Dose Route Start Last Admin Trade Name Freq PRN Reason Stop Dose Admin Acetaminophen 650 mg 10/01/20 00:26 Acetaminophen 325 Mg Tab PO Q4H PRN Pain MILD(1-3)/Fever >100.5/CURRAN Albuterol 2.5 mg 10/01/20 00:36 Albuterol 2.5 Mg/3 Ml Nebu IH Q3HRT PRN Wheezing Albuterol/Ipratropium 1 ampul 10/01/20 08:00 Ipratropium/Albuterol Sulfate 3 Ml Ampul.Neb IH QIDRT [facility] Amlodipine Besylate 2.5 mg 10/01/20 10:00 Amlodipine 5 Mg Tab PO DAILY [facility] Calcium Carbonate/Glycine 648 mg 10/01/20 00:30 10/01/20 07:42 Calcium Carbonate 648 Mg Tab PO Not Given BID [facility] Carbamazepine 200 mg 10/01/20 01:00 10/01/20 07:40 Carbamazepine Xr 200 Mg Tab PO Not Given BID [facility] Famotidine 20 mg 10/01/20 10:00 Famotidine 20 Mg Tab PO BID [facility] Heparin Sodium (Porcine) 5,000 unit 10/01/20 00:30 10/01/20 07:41 Heparin 5,000 Unit/1 Ml Vial SUB-Q Not Given Q12HR [facility] Hydromorphone HCl 0.5 mg 10/01/20 00:26 Hydromorphone 1 Mg/1 Ml Inj IV Q3H PRN Pain , Severe (7-10) Levofloxacin/Dextrose 750 mg in 150 mls @ 100 mls/hr 10/01/20 10:00 Levaquin 750mg/150ml IV Q24HR [facility] Protocol Levetiracetam 750 mg 10/01/20 00:30 10/01/20 07:41 Levetiracetam 500 Mg Tab PO Not Given BID [facility] Lisinopril 20 mg 10/01/20 10:00 Lisinopril 20 Mg Tab PO DAILY [facility] Metoclopramide HCl 10 mg 10/01/20 00:26 Metoclopramide 10 Mg/2 Ml Inj IV Q6H PRN Nausea And Vomiting Miscellaneous Medication 20 mg 10/01/20 00:30 Clobazam [Onfi] PO BID [facility] Multivitamins 1 each 10/01/20 10:00 Multivitamins ,Therapeutic Tab PO DAILY [facility] Ondansetron HCl 4 mg 10/01/20 00:26 Ondansetron 4 Mg/2 Ml Inj IV Q8H PRN Nausea And Vomiting Oxycodone/Acetaminophen 1 tab 10/01/20 00:26 Oxycodone /Acetaminophen 5-325mg Tab PO Q6H PRN Pain, Moderate (4-6) Pravastatin Sodium 40 mg 10/01/20 10:00 Pravastatin 40 Mg Tab PO DAILY [facility] Propranolol HCl 40 mg 10/01/20 01:00 10/01/20 07:42 Propranolol 40 Mg Tab PO Not Given BID PATTIE Sodium Chloride 10 ml 10/01/20 01:00 10/01/20 07:41 Sodium Chloride 0.9% 10 Ml Flush Syringe IV Not Given BID PATTIE Sodium Chloride 10 ml 10/01/20 00:26 Sodium Chloride 0.9% 10 Ml Flush Syringe IV PRN PRN LINE FLUSH
[2020-10-01] MEDS: IPRATROPIUM/ALBUTEROL SULFATE 3 ML AMPUL.NEB IH SCH ×4 (09:00→21:48)
--- NOTE | 2020-10-01 09:45 | Consultation ---
History of Present Illness Consult date: 10/01/20 Reason for consult: dyspnea, asthma, hypoxemia, obstructive sleep apnea History of present illness: This is a 55-year-old female with history of heart disease, asthma, seizure disorder, migraine headache, obstructive sleep apnea, thyroid disease, hypertension, cognitive delay who presents with shortness of breath. Patient had trouble breathing today. Mother gave patient nebulizer treatment. Patient still had persistent work of breathing with hypoxia 88% on room air. Oxygen saturation improved to 100% on 3 L nasal cannula. Patient has been admitted to [facility] on previous occasion. Pharmacy Order Entry Technician was concerned for significant work of breathing and increased respiratory rate 28 breaths/min. patient awake. Resting on 2 litres O2. O2 saturation 99%. No acute respiratory distress at rest. BIPAP 14/8, rate 16, FIO2 35% stand by in the room. Patient febrile. No leukocytosis. Chest xray done 09/30/20 reported Suboptimal inspiration with possible mild pulmonary vascular congestion Patient presently on albuterol/atrovent aerosol reatments, I/V Solumedrol, Levaquin, S/C Lovenox, Famotidine. Patient allergic to penicillin. No further history available at this time. Past History Past Medical History: hypertension, hypothyroidism, seizures Medications and Allergies Allergies Allergy/AdvReac Type Severity Reaction Status Date / Time Penicillins Allergy Swelling Verified 09/20/18 12:45 Home Medications Medication Instructions Recorded Confirmed Last Taken Type Calcium Carbonate [Calcium] 600 mg PO BID 09/14/14 09/27/18 09/25/18 History Fish Oil/Borage/Flax/Om3,6,9 1 1 tab PO DAILY 09/14/14 09/27/18 09/22/18 History [Nebo 3-6-9 1,200 mg Softgel] Garlic [Odor Free Garlic] 1 tab PO DAILY 09/14/14 09/27/18 09/20/18 History Levothyroxine Sodium 125 mcg PO DAILY 09/14/14 09/27/18 09/26/18 07:00 History Lisinopril 20 mg PO DAILY 09/14/14 09/27/18 09/26/18 09:00 History Multivitamin with Folic Acid [One 1 tab PO DAILY 09/14/14 09/27/18 09/26/18 09:00 History Daily Multivitamin Tablet] Pravastatin Sodium 1 tab PO DAILY 09/14/14 09/27/18 09/26/18 21:00 History amLODIPine 2.5 mg PO DAILY 09/14/14 09/27/18 09/26/18 09:00 History carBAMazepine XR [TEGretol Xr] 200 mg PO BID 09/14/14 09/27/18 09/26/18 21:00 History levETIRAcetam [Levetiracetam] 750 mg PO BID 09/14/14 09/27/18 09/27/18 08:30 History propranoloL [Inderal] 40 mg PO BID 09/14/14 09/27/18 09/26/18 21:00 History Clobazam [Onfi] 20 mg PO BID 09/17/18 09/27/18 09/26/18 21:00 History Active Meds: Active Medications Acetaminophen (Acetaminophen 325 Mg Tab) 650 mg PO Q4H PRN PRN Reason: Pain MILD(1-3)/Fever >100.5/CURRAN Albuterol (Albuterol 2.5 Mg/3 Ml Nebu) 2.5 mg IH Q3HRT PRN PRN Reason: Wheezing Albuterol/Ipratropium (Ipratropium/Albuterol Sulfate 3 Ml Ampul.Neb) 1 ampul IH QIDRT [facility] Last Admin: 10/01/20 09:00 Dose: 1 ampul Documented by: Amlodipine Besylate (Amlodipine 5 Mg Tab) 2.5 mg PO DAILY [facility] Calcium Carbonate/Glycine (Calcium Carbonate 648 Mg Tab) 648 mg PO BID [facility] Last Admin: 10/01/20 07:42 Dose: Not Given Documented by: Carbamazepine (Carbamazepine Xr 200 Mg Tab) 200 mg PO BID [facility] Last Admin: 10/01/20 07:40 Dose: Not Given Documented by: Famotidine (Famotidine 20 Mg Tab) 20 mg PO BID [facility] Heparin Sodium (Porcine) (Heparin 5,000 Unit/1 Ml Vial) 5,000 unit SUB-Q Q12HR [facility] Last Admin: 10/01/20 07:41 Dose: Not Given Documented by: Hydromorphone HCl (Hydromorphone 1 Mg/1 Ml Inj) 0.5 mg IV Q3H PRN PRN Reason: Pain , Severe (7-10) Levofloxacin/Dextrose (Levaquin 750mg/150ml) 750 mg in 150 mls @ 100 mls/hr IV Q24HR [facility]; Protocol Levetiracetam (Levetiracetam 500 Mg Tab) 750 mg PO BID [facility] Last Admin: 10/01/20 07:41 Dose: Not Given Documented by: Lisinopril (Lisinopril 20 Mg Tab) 20 mg PO DAILY [facility] Methylprednisolone Sodium Succinate (Methylprednisolone Sod Succinate 125 Mg/2 Ml Inj) 80 mg IV Q8H [facility] Metoclopramide HCl (Metoclopramide 10 Mg/2 Ml Inj) 10 mg IV Q6H PRN PRN Reason: Nausea And Vomiting Miscellaneous Medication (Clobazam [Onfi]) 20 mg PO BID [facility] Multivitamins (Multivitamins ,Therapeutic Tab) 1 each PO DAILY [facility] Ondansetron HCl (Ondansetron 4 Mg/2 Ml Inj) 4 mg IV Q8H PRN PRN Reason: Nausea And Vomiting Oxycodone/Acetaminophen (Oxycodone /Acetaminophen 5-325mg Tab) 1 tab PO Q6H PRN PRN Reason: Pain, Moderate (4-6) Pravastatin Sodium (Pravastatin 40 Mg Tab) 40 mg PO DAILY [facility] Propranolol HCl (Propranolol 40 Mg Tab) 40 mg PO BID [facility] Last Admin: 10/01/20 07:42 Dose: Not Given Documented by: Sodium Chloride (Sodium Chloride 0.9% 10 Ml Flush Syringe) 10 ml IV BID [facility] Last Admin: 10/01/20 07:41 Dose: Not Given Documented by: Sodium Chloride (Sodium Chloride 0.9% 10 Ml Flush Syringe) 10 ml IV PRN PRN PRN Reason: LINE FLUSH Review of Systems All systems: negative Physical Examination Vital signs: Vital Signs Temp Pulse Resp BP Pulse Ox 98.5 F 94 H 28 H 162/104 96 09/30/20 16:51 09/30/20 16:51 09/30/20 16:51 09/30/20 16:51 09/30/20 16:51 General appearance: no acute distress, alert Eyes: non-icteric ENT: oropharynx moist Neck: supple, no JVD Effort: mildly labored Ascultation: Bilateral: diminished breath sounds Cardiovascular: regular rate and rhythm Gastrointestinal: normoactive bowel sounds, soft, non-tender Integumentary: normal Extremities: no cyanosis, no edema Musculoskeletal: no deformities Gait: other (Resting in bed.) non-focal exam, pupils equal and round depressed Results - Laboratory Findings CBC and BMP: 10/02/20 04:23 10/02/20 04:23 ABG ABG pH 7.333 pH Units (7.350-7.450) L 09/30/20 18:05 ABG pCO2 68.5 mm Hg 09/30/20 18:05 ABG pO2 78.0 mm Hg (80.0-90.0) L 09/30/20 18:05 ABG O2 Saturation 95.2 % (95.0-99.0) 09/30/20 18:05 PT/INR, D-dimer D-Dimer < 135.00 ng/mlDDU (0-234) 09/30/20 17:15 Abnormal lab findings: Abnormal Labs 09/30/20 09/30/20 09/30/20 17:15 17:15 17:15 Hgb 14.7 H Hct 44.0 H [place] % (Auto) 10.4 H ABG pH ABG pO2 ABG HCO3 ABG Base Excess Oxyhemoglobin Sodium 136 L Chloride 95.0 L Carbon Dioxide 35 H Glucose 106 H 107 H C-Reactive Protein 1.70 H 09/30/20 18:05 Hgb Hct [place] % (Auto) ABG pH 7.333 L ABG pO2 78.0 L ABG HCO3 35.6 H ABG Base Excess 7.1 H Oxyhemoglobin 92.8 L Sodium Chloride Carbon Dioxide Glucose C-Reactive Protein - Diagnostic Findings Chest x-ray: report reviewed, image reviewed Additional studies: CHEST 1 VIEW 09/30/20 INDICATION / CLINICAL INFORMATION: Dyspnea. COMPARISON: 11/18/2011 FINDINGS: SUPPORT DEVICES: None. HEART / MEDIASTINUM: No significant abnormality. LUNGS / PLEURA: Mild pulmonary vascular congestion No pneumothorax. ADDITIONAL FINDINGS: No significant additional findings. IMPRESSION: Suboptimal inspiration with possible mild pulmonary vascular congestion Assessment and Plan This is a 55-year-old female with history of heart disease, asthma, seizure disorder, migraine headache, obstructive sleep apnea, thyroid disease, hypertension, cognitive delay who presents with shortness of breath. Patient had trouble breathing today. Mother gave patient nebulizer treatment. Patient still had persistent work of breathing with hypoxia 88% on room air. Oxygen saturation improved to 100% on 3 L nasal cannula. Patient has been admitted to [facility] on previous occasion. Pharmacy Order Entry Technician was concerned for significant work of breathing and increased respiratory rate 28 breaths/min. patient awake. Resting on 2 litres O2. O2 saturation 99%. No acute respiratory distress at rest. BIPAP 14/8, rate 16, FIO2 35% stand by in the room. Patient febrile. No leukocytosis. Chest xray done 09/30/20 reported Suboptimal inspiration with possible mild pulmonary vascular congestion Patient presently on albuterol/atrovent aerosol reatments, I/V Solumedrol, Levaquin, S/C Lovenox, Famotidine. Patient allergic to penicillin. No further history available at this time. - Patient Problems (1) Acute respiratory failure with hypoxia Current Visit: Yes Status: Acute Plan to address problem: O2 2 litres via nasal canula. BIPAP 14/8, rate 16, FIO2 35%. stand by in the room. albuterol/atrovent aerosol reatments q 6 hours. I/V Solumedrol, I/V Levaquin, S/C Lovenox, Famotidine. (2) Status asthmaticus Current Visit: Yes Status: Acute Plan to address problem: O2 2 litres via nasal canula. BIPAP 14/8, rate 16, FIO2 35%. stand by in the room. albuterol/atrovent aerosol reatments q 6 hours. I/V Solumedrol, I/V Levaquin, S/C Lovenox, Famotidine (3) Suspected COVID-19 virus infection Current Visit: Yes Status: Acute Plan to address problem: COVID PCR is negative. (4) Hypertension Current Visit: Yes Status: Chronic Qualifiers: Hypertension type: essential hypertension Qualified Code(s): I10 - Essential (primary) hypertension Plan to address problem: Management as per primary care. (5) Hypothyroidism (acquired) Current Visit: Yes Status: Chronic Plan to address problem: Management as per primary care. (6) Seizure disorder Current Visit: Yes Status: Chronic Plan to address problem: Management as per primary care and neurology.
[2020-10-01] MEDS: FAMOTIDINE 20 MG TAB PO SCH ×2 (10:17→22:08)
[2020-10-01] MEDS: PRAVASTATIN 40 MG TAB PO SCH (10:18)
[2020-10-01] MEDS: methylPREDNISolone Sod Succinate 125 MG/2 ML INJ IV SCH ×2 (10:19→17:30)
[2020-10-01] MEDS: MULTIVITAMINS ,THERAPEUTIC TAB PO SCH (10:19)
[2020-10-01] MEDS: LISINOPRIL 20 MG TAB PO SCH (10:19)
[2020-10-01] MEDS: amLODIPine 5 MG TAB PO SCH (10:42)
--- NOTE | 2020-10-01 19:41 | Consultation ---
History of Present Illness Consult date: 10/01/20 Reason for Consult: Seizures Chief complaint: Shortness of Breath History of present illness: 55 yo female with seizure d/o who presents with shortness of breath and at least 1 seizure ("slight" per EMR) per day. Noted to be on multiple AEDs including Onfi, Tegretol, and Keppra. Patient is currently undergoing Echocardiogram during rounds. Past History Past Medical History: hypertension, hypothyroidism, seizures Medications and Allergies Allergies Allergy/AdvReac Type Severity Reaction Status Date / Time Penicillins Allergy Swelling Verified 09/20/18 12:45 Home Medications Medication Instructions Recorded Confirmed Last Taken Type Calcium Carbonate [Calcium] 600 mg PO BID 09/14/14 09/27/18 09/25/18 History Fish Oil/Borage/Flax/Om3,6,9 1 1 tab PO DAILY 09/14/14 09/27/18 09/22/18 History [Hemet 3-6-9 1,200 mg Softgel] Garlic [Odor Free Garlic] 1 tab PO DAILY 09/14/14 09/27/18 09/20/18 History Levothyroxine Sodium 125 mcg PO DAILY 09/14/14 09/27/18 09/26/18 07:00 History Lisinopril 20 mg PO DAILY 09/14/14 09/27/18 09/26/18 09:00 History Multivitamin with Folic Acid [One 1 tab PO DAILY 09/14/14 09/27/18 09/26/18 09:00 History Daily Multivitamin Tablet] Pravastatin Sodium 1 tab PO DAILY 09/14/14 09/27/18 09/26/18 21:00 History amLODIPine 2.5 mg PO DAILY 09/14/14 09/27/18 09/26/18 09:00 History carBAMazepine XR [TEGretol Xr] 200 mg PO BID 09/14/14 09/27/18 09/26/18 21:00 History levETIRAcetam [Levetiracetam] 750 mg PO BID 09/14/14 09/27/18 09/27/18 08:30 History propranoloL [Inderal] 40 mg PO BID 09/14/14 09/27/18 09/26/18 21:00 History Clobazam [Onfi] 20 mg PO BID 09/17/18 09/27/18 09/26/18 21:00 History Active Meds: Active Medications Acetaminophen (Acetaminophen 325 Mg Tab) 650 mg PO Q4H PRN PRN Reason: Pain MILD(1-3)/Fever >100.5/CURRAN Albuterol (Albuterol 2.5 Mg/3 Ml Nebu) 2.5 mg IH Q3HRT PRN PRN Reason: Wheezing Albuterol/Ipratropium (Ipratropium/Albuterol Sulfate 3 Ml Ampul.Neb) 1 ampul IH QIDRT [facility] Last Admin: 10/01/20 16:48 Dose: 1 ampul Documented by: Amlodipine Besylate (Amlodipine 5 Mg Tab) 2.5 mg PO DAILY [facility] Last Admin: 10/01/20 10:42 Dose: 2.5 mg Documented by: Calcium Carbonate/Glycine (Calcium Carbonate 648 Mg Tab) 648 mg PO BID [facility] Last Admin: 10/01/20 12:36 Dose: 648 mg Documented by: Carbamazepine (Carbamazepine Xr 200 Mg Tab) 200 mg PO BID [facility] Last Admin: 10/01/20 12:36 Dose: 200 mg Documented by: Famotidine (Famotidine 20 Mg Tab) 20 mg PO BID [facility] Last Admin: 10/01/20 10:17 Dose: 20 mg Documented by: Heparin Sodium (Porcine) (Heparin 5,000 Unit/1 Ml Vial) 5,000 unit SUB-Q Q12HR [facility] Last Admin: 10/01/20 10:49 Dose: 5,000 unit Documented by: Hydromorphone HCl (Hydromorphone 1 Mg/1 Ml Inj) 0.5 mg IV Q3H PRN PRN Reason: Pain , Severe (7-10) Levofloxacin/Dextrose (Levaquin 750mg/150ml) 750 mg in 150 mls @ 100 mls/hr IV Q24HR [facility]; Protocol Last Admin: 10/01/20 10:16 Dose: 100 mls/hr Documented by: Levetiracetam (Levetiracetam 500 Mg Tab) 750 mg PO BID [facility] Last Admin: 10/01/20 10:18 Dose: 750 mg Documented by: Lisinopril (Lisinopril 20 Mg Tab) 20 mg PO DAILY [facility] Last Admin: 10/01/20 10:19 Dose: 20 mg Documented by: Methylprednisolone Sodium Succinate (Methylprednisolone Sod Succinate 125 Mg/2 Ml Inj) 80 mg IV Q8H [facility] Last Admin: 10/01/20 17:30 Dose: 80 mg Documented by: Metoclopramide HCl (Metoclopramide 10 Mg/2 Ml Inj) 10 mg IV Q6H PRN PRN Reason: Nausea And Vomiting Miscellaneous Medication (Clobazam 10 Mg Tablets) 2 each PO QHS [facility] Multivitamins (Multivitamins ,Therapeutic Tab) 1 each PO DAILY [facility] Last Admin: 10/01/20 10:19 Dose: 1 each Documented by: Ondansetron HCl (Ondansetron 4 Mg/2 Ml Inj) 4 mg IV Q8H PRN PRN Reason: Nausea And Vomiting Oxycodone/Acetaminophen (Oxycodone /Acetaminophen 5-325mg Tab) 1 tab PO Q6H PRN PRN Reason: Pain, Moderate (4-6) Pravastatin Sodium (Pravastatin 40 Mg Tab) 40 mg PO DAILY [facility] Last Admin: 10/01/20 10:18 Dose: 40 mg Documented by: Propranolol HCl (Propranolol 40 Mg Tab) 40 mg PO BID [facility] Last Admin: 10/01/20 12:35 Dose: 40 mg Documented by: Sodium Chloride (Sodium Chloride 0.9% 10 Ml Flush Syringe) 10 ml IV BID [facility] Last Admin: 10/01/20 10:43 Dose: 10 ml Documented by: Sodium Chloride (Sodium Chloride 0.9% 10 Ml Flush Syringe) 10 ml IV PRN PRN PRN Reason: LINE FLUSH Physical Examination - Vital Signs Vital Signs: Vital Signs Temp Pulse Resp BP Pulse Ox 98.5 F 94 H 28 H 162/104 96 09/30/20 16:51 09/30/20 16:51 09/30/20 16:51 09/30/20 16:51 09/30/20 16:51 - Physical Exam Narrative exam: Patient is undergoing Echocardiogram during rounds. Results - Laboratory Findings CBC and BMP: 09/30/20 17:15 09/30/20 17:15 Abnormal Lab Findings: Abnormal Labs 09/30/20 09/30/20 09/30/20 17:15 17:15 17:15 Hgb 14.7 H Hct 44.0 H [place] % (Auto) 10.4 H ABG pH ABG pO2 ABG HCO3 ABG Base Excess Oxyhemoglobin Sodium 136 L Chloride 95.0 L Carbon Dioxide 35 H Glucose 106 H 107 H C-Reactive Protein 1.70 H 09/30/20 18:05 Hgb Hct [place] % (Auto) ABG pH 7.333 L ABG pO2 78.0 L ABG HCO3 35.6 H ABG Base Excess 7.1 H Oxyhemoglobin 92.8 L Sodium Chloride Carbon Dioxide Glucose C-Reactive Protein Assessment and Plan 55 yo female with seizure d/o who presents with shortness of breath and hx of "slight seizure" (per EMR) each day. 1. Seizure d/o - ordered EEG and MRI Brain w/ wo contrast; continue home regimen of AEDs including Onfi, Keppra, and Tegretol XR; dose adjustment based on EEG findings; no: driving, operation of heavy machinery, supervisory roles, self bath/climb/cook/swim until cleared by a neurologist. 2. Correction of underlying inflammatory and/or infectious etiologies per primary team as these can lower seizure threshold. Isidro North MD Neurology
[2020-10-01] MEDS: CLOBAZAM 10 MG PO SCH (23:37)
[2020-10-02] MEDS: methylPREDNISolone Sod Succinate 125 MG/2 ML INJ IV SCH ×3 (02:20→18:26)
[2020-10-02 04:53] LABS: Basophils % (Auto) 0.2 % (0.0-1.8); Hematocrit 40.1 % (30.3-42.9); Hemoglobin 13.6 gm/dl (10.1-14.3); Lymphocytes # (Auto) 0.8 K/mm3 (1.2-5.4); Lymphocytes % (Auto) 9.4 % (13.4-35.0); Mean Corpuscular HGB Conc 34 % (30-34); Mean Corpuscular Volume 96 fl (79-97); Monocytes # (Auto) 0.6 K/mm3 (0.0-0.8); Platelet Count 294 K/mm3 (140-440); Red Cell Distribution Width 13.7 % (13.2-15.2)
[2020-10-02 05:12] LABS: Alanine Aminotransferase 15 units/L (7-56); Albumin 3.8 g/dL (3.9-5); Blood Urea Nitrogen 16 mg/dL (7-17); Calcium 10.1 mg/dL (8.4-10.2); Hemolysis Index 2
[2020-10-02 05:21] LABS: BUN/Creatinine Ratio 27
[2020-10-02] MEDS: IPRATROPIUM/ALBUTEROL SULFATE 3 ML AMPUL.NEB IH SCH ×3 (08:06→22:53)
--- NOTE | 2020-10-02 08:34 | Progress Note ---
Assessment and Plan Assessment and plan: 55-year-old female with history of asthma and seizure disorder, cognitive delay and obstructive sleep apnea and hypothyroidism comes in for increasing shortness of breath and for 1 day. Patient was hypoxic at 88% on room air. Oxygen saturation improved to 100% on 3 L nasal cannula oxygen. Patient was admitted to [facility] recently. Patient has significant work of breathing and increased respiratory rate of 28 breaths/min. No fever. No exposure to coronavirus. ED physician was able to obtain further information from the patient's mom who is the primary caregiver: Patient had trouble breathing today. Mother gave patient nebulizer treatment. Patient still had persistent work of breathing with hypoxia 88% on room air. Oxygen saturation improved to 100% on 3 L nasal cannula. Patient has been admitted to [facility] on previous occasion. Patient was only able to give 1 word answers to questions. She states "breathing" and "headache". 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 Per mother she is bedbound due repeated seizure which throws her down to the floor, they do some exercise with her but has to be monitor closely. Continue evaluating for COVID-19. BMI listed on the [employer] is incorrect. No evidence of malnutrition noted. No new seizure disorder. Will obtain Echocardiogram. Per mother she has Nebulizers at home. Aspiration precaution. I have discussed with the mother in detail will obtain PT OT evaluate for some Exercise is not necessary to assess ambulation. 2/2: Continue supportive care. COVID19 RULED OUT. Neurology and Pulmonary input noted, awaiting EEG, AND MRI, Recheck CHEST XRAY, Echo reviewed. Will monitor oxygen saturation. Wean steroids. Mom refused MRI. Will continue weaning off oxygen today and anticipate discharge tomorrow if respiratory status improved. (1) Acute respiratory failure with hypoxia Current Visit: Yes Status: Acute Plan to address problem: Oxygen supplementation as necessary (2) Status asthmaticus Current Visit: Yes Status: Acute Plan to address problem: Nebulizer treatments every 3 as needed and [id number]. IV Solu-Medrol initiated. IV Levaquin initiated. Pulmonary consult requested. (3) Suspected COVID-19 virus infection Current Visit: Yes Status: Acute Plan to address problem: Ruled out. Unlikely. (4) Hypothyroidism (acquired) Current Visit: Yes Status: Chronic Plan to address problem: Continue Levoxyl and check TSH (5) Hypertension Current Visit: Yes Status: Chronic Qualifiers: Hypertension type: essential hypertension Qualified Code(s): I10 - Essential (primary) hypertension Plan to address problem: Continue antihypertensives and adjust medications (6) Seizure disorder Current Visit: Yes Status: Chronic Plan to address problem: Continue Keppra (7) Hyperlipidemia Current Visit: Yes Status: Chronic Qualifiers: Hyperlipidemia type: mixed hyperlipidemia Qualified Code(s): E78.2 - Mixed hyperlipidemia Plan to address problem: Continue statins (8) DVT prophylaxis Current Visit: Yes Status: Acute Plan to address problem: On Lovenox and GI prophylaxis History Interval history: Patient seen and examined this morning no new seizures noted. Still on oxygen, Discussed with nursing staff to wean off. Hospitalist Physical - Physical exam Narrative exam: VITAL SIGNS: Reviewed. GENERAL: The patient appears normally developed, obese, vital signs as documented. HEAD: No signs of head trauma. EYES: Pupils are equal. Extraocular motions intact. EARS: Hearing grossly intact. MOUTH: Oropharynx is normal. NECK: No adenopathy, no JVD. CHEST: Chest with diminished breath sounds bilaterally. No wheezes, rales, or rhonchi. CARDIAC: Regular rate and rhythm. S1 and S2, without murmurs, gallops, or rubs. VASCULAR: No Edema. Peripheral pulses normal and equal in all extremities. ABDOMEN: Soft, non tender and non distended. No rebound or guarding, and no masses palpated. Bowel Sounds normal. MUSCULOSKELETAL: Good range of motion of all major joints. Extremities without clubbing, cyanosis or edema. NEUROLOGIC EXAM: Alert and oriented x 3 No focal sensory or strength deficits. Speech normal. Follows commands. PSYCHIATRIC: Mood normal. SKIN: detail exam as documented in skin assessment - Constitutional Vitals: Temp Pulse Resp BP Pulse Ox 98.2 F 88 16 114/70 100 10/02/20 05:52 10/02/20 08:07 10/02/20 08:07 10/02/20 05:52 10/02/20 05:52 General appearance: Present: severe distress HEART Score - HEART Score Age: 45-65 Risk factors: 1-2 risk factors Troponin: Troponin T < 0.010 ng/mL (0.00-0.029) 09/30/20 17:15 Troponin: < normal limit - Critical Actions Critical Actions: 0-3 pts:0.9-1.7%risk of adverse cardiac event.Candidate for discharge Results - Labs CBC & Chem 7: 10/02/20 04:23 10/02/20 04:23 Labs: Laboratory Last Values WBC 8.2 K/mm3 (4.5-11.0) 10/02/20 04:23 RBC 4.20 M/mm3 (3.65-5.03) 10/02/20 04:23 Hgb 13.6 gm/dl (10.1-14.3) 10/02/20 04:23 Hct 40.1 % (30.3-42.9) 10/02/20 04:23 MCV 96 fl (79-97) 10/02/20 04:23 MCH 33 pg (28-32) H 10/02/20 04:23 MCHC 34 % (30-34) 10/02/20 04:23 RDW 13.7 % (13.2-15.2) 10/02/20 04:23 Plt Count 294 K/mm3 (140-440) 10/02/20 04:23 Lymph % (Auto) 9.4 % (13.4-35.0) L 10/02/20 04:23 [place] % (Auto) 7.0 % (0.0-7.3) 10/02/20 04:23 Eos % (Auto) 0.0 % (0.0-4.3) 10/02/20 04:23 Baso % (Auto) 0.2 % (0.0-1.8) 10/02/20 04:23 Lymph # (Auto) 0.8 K/mm3 (1.2-5.4) L 10/02/20 04:23 [place] # (Auto) 0.6 K/mm3 (0.0-0.8) 10/02/20 04:23 Eos # (Auto) 0.0 K/mm3 (0.0-0.4) 10/02/20 04:23 Baso # (Auto) 0.0 K/mm3 (0.0-0.1) 10/02/20 04:23 Seg Neutrophils % 83.4 % (40.0-70.0) H 10/02/20 04:23 Seg Neutrophils # 6.9 K/mm3 (1.8-7.7) 10/02/20 04:23 D-Dimer < 135.00 ng/mlDDU (0-234) 09/30/20 17:15 ABG pH 7.333 pH Units (7.350-7.450) L 09/30/20 18:05 ABG pCO2 68.5 mm Hg 09/30/20 18:05 ABG pO2 78.0 mm Hg (80.0-90.0) L 09/30/20 18:05 ABG HCO3 35.6 mmol/L (20.0-26.0) H 09/30/20 18:05 ABG O2 Saturation 95.2 % (95.0-99.0) 09/30/20 18:05 ABG O2 Content 19.0 (0.0-44) 09/30/20 18:05 ABG Base Excess 7.1 mmol/L (-2.0-3.0) H 09/30/20 18:05 ABG Hemoglobin 14.6 gm/dl (12.0-16.0) 09/30/20 18:05 ABG Carboxyhemoglobin 2.0 % (0.0-5.0) 09/30/20 18:05 ABG Methemoglobin 0.5 % (0.0-1.5) 09/30/20 18:05 Oxyhemoglobin 92.8 % (95.0-99.0) L 09/30/20 18:05 FiO2 28 % 09/30/20 18:05 Sodium 136 mmol/L (137-145) L 10/02/20 04:23 Potassium 4.5 mmol/L (3.6-5.0) 10/02/20 04:23 Chloride 95.5 mmol/L (98-107) L 10/02/20 04:23 Carbon Dioxide 32 mmol/L (22-30) H 10/02/20 04:23 Anion Gap 13 mmol/L 10/02/20 04:23 BUN 16 mg/dL (7-17) 10/02/20 04:23 Creatinine 0.6 mg/dL (0.6-1.2) 10/02/20 04:23 Estimated GFR > 60 ml/min 10/02/20 04:23 BUN/Creatinine Ratio 27 % 10/02/20 04:23 Glucose 115 mg/dL (65-100) H 10/02/20 04:23 Hemoglobin A1c 5.6 % (4-6) 09/30/20 17:15 Calcium 10.1 mg/dL (8.4-10.2) 10/02/20 04:23 Ferritin 37.1 ng/mL (10.0-200.0) 09/30/20 17:15 Total Bilirubin 0.20 mg/dL (0.1-1.2) 10/02/20 04:23 AST 13 units/L (5-40) 10/02/20 04:23 ALT 15 units/L (7-56) 10/02/20 04:23 Alkaline Phosphatase 60 units/L (35-129) 10/02/20 04:23 Lactate Dehydrogenase 151 units/L (91-180) 09/30/20 17:15 Troponin T < 0.010 ng/mL (0.00-0.029) 09/30/20 17:15 C-Reactive Protein 1.70 mg/dL (0.00-1.30) H 09/30/20 17:15 NT-Pro-B Natriuret Pep 26.08 pg/mL (0-900) 09/30/20 17:15 Total Protein 7.6 g/dL (6.3-8.2) 10/02/20 04:23 Albumin 3.8 g/dL (3.9-5) L 10/02/20 04:23 Albumin/Globulin Ratio 1.0 % 10/02/20 04:23 Procalcitonin < 0.05 ng/mL (<0.15) 09/30/20 17:15 Coronavirus (PCR) Negative (Negative) 10/01/20 Unknown Microbiology: Microbiology 09/30/20 17:15 Peripheral/Venous Blood Culture - Preliminary NO GROWTH AFTER 24 HOURS 09/30/20 17:15 Peripheral/Venous Blood Culture - Preliminary NO GROWTH AFTER 24 HOURS - Diagnostic Impressions Diagnostic Impressions: Echocardiogram 10/01/20 10:11 Transthoracic Echocardiogram Indication: SOB BP: 122/77 HR: 86 Conclusions *Global left ventricular systolic function is normal. *The estimated ejection fraction is 60-65%. *Mild concentric left ventricular hypertrophy is observed. *There is mild mitral regurgitation. *There is trace-mild tricuspid regurgitation. *There is mild-moderate pulmonary hypertension. *The right ventricular systolic pressure is calculated at 42 mmHg. Findings Left Ventricle: The left ventricular chamber size is normal. Mild concentric left ventricular hypertrophy is observed. Global left ventricular systolic function is normal. The estimated ejection fraction is 60-65%. Left Atrium: The left atrial chamber size is normal. Right Ventricle: The right ventricle is slightly dilated. Right Atrium: The right atrial cavity size is normal. Aortic Valve: The aortic valve leaflets are mildly thickened. There is no evidence of aortic regurgitation. There is no evidence of aortic stenosis. Mitral Valve: The mitral valve leaflets are mildly thickened. There is mild mitral regurgitation. There is no evidence of mitral stenosis. Tricuspid Valve: There is trace tricuspid regurgitation. The right ventricular systolic pressure is calculated at 42 mmHg. There is evidence of moderate pulmonary hypertension. Pulmonic Valve: There is trace pulmonic regurgitation. Pericardium: There is no pericardial effusion. Aorta: There is no dilatation of the aortic root. Venous: The inferior vena cava is dilated. Measurements Chambers 2D Name Value Normal Range IVSd (2D) 0.99 cm (0.6 - 1.1) LVPWd (2D) 0.98 cm (0.6 - 1.1) LVIDd (2D) 4.25 cm (3.7 - 5.6) LVIDs (2D) 2.74 cm (2 - 3.8) LV FS (2D) 35.48 % - EF Teichholz (2D) 65.27 % - Ao root diameter (2D) 3.64 cm (2 - 3.7) Volumes/Mass Name Value Normal Range LA ESV SP 4CH (A/L) 21.19 ml - LA ESV SP 2CH (A/L) 19.3 ml - LA ESV BP (A/L) 20.59 ml - LA ESV BP (A/L) index 10 ml/m2 - LA ESV SP 4CH (MOD) 19.78 ml - LA ESV SP 2CH (MOD) 18.91 ml - LA ESV BP (MOD) 19.65 ml - LA ESV BP (MOD) index 9.54 ml/m2 - Diastolic/Systolic Function Name Value Normal Range MV E-wave Vmax 0.78 m/sec - MV deceleration time 186.36 msec - MV A-wave Vmax 0.98 m/sec - MV E:A ratio 0.8 ratio - Aortic Valve Name Value Normal Range AV Vmax 1.3 m/sec - AV VTI 24.53 cm - AV peak gradient 6.76 mmHg - AV mean gradient 3.85 mmHg - LVOT diameter 2 cm - LVOT Vmax 0.92 m/sec - LVOT VTI 18.28 cm - LVOT peak gradient 3.39 mmHg - LVOT mean gradient 1.7 mmHg - SV LVOT 57.27 ml - PHIL (continuity Vmax) 2.22 cm2 - PHIL (continuity VTI) 2.33 cm2 - Tricuspid Valve Name Value Normal Range TR Vmax 2.63 m/sec - TR peak gradient 27 mmHg - RAP 15 mmHg - RVSP 42 mmHg - IVC diameter 2.39 cm (1.2 - 2.3) Pulmonic Valve/Qp:Qs Name Value Normal Range PV Vmax 0.73 m/sec - PV peak gradient 2.14 mmHg - PV acceleration time 129.4 msec - Harris/IV: Voiding Method External Female Catheter IV Catheter Type [Right Hand] INT / Saline Lock Active Medications - Current Medications Current Medications: Generic Name Dose Route Start Last Admin Trade Name Freq PRN Reason Stop Dose Admin Acetaminophen 650 mg 10/01/20 00:26 10/01/20 20:31 Acetaminophen 325 Mg Tab PO 650 mg Q4H PRN Administration Pain MILD(1-3)/Fever >100.5/CURRAN Albuterol 2.5 mg 10/01/20 00:36 Albuterol 2.5 Mg/3 Ml Nebu IH Q3HRT PRN Wheezing Albuterol/Ipratropium 1 ampul 10/01/20 08:00 10/02/20 08:06 Ipratropium/Albuterol Sulfate 3 Ml Ampul.Neb IH 1 ampul QIDRT PTATIE Administration Amlodipine Besylate 2.5 mg 10/01/20 10:00 10/01/20 10:42 Amlodipine 5 Mg Tab PO 2.5 mg DAILY PATTIE Administration Calcium Carbonate/Glycine 648 mg 10/01/20 00:30 10/01/20 22:09 Calcium Carbonate 648 Mg Tab PO 648 mg BID PATTIE Administration Carbamazepine 200 mg 10/01/20 01:00 10/01/20 22:09 Carbamazepine Xr 200 Mg Tab PO 200 mg BID PATTIE Administration Famotidine 20 mg 10/01/20 10:00 10/01/20 22:08 Famotidine 20 Mg Tab PO 20 mg BID PATTIE Administration Heparin Sodium (Porcine) 5,000 unit 10/01/20 00:30 10/01/20 22:09 Heparin 5,000 Unit/1 Ml Vial SUB-Q 5,000 unit Q12HR PATTIE Administration Hydromorphone HCl 0.5 mg 10/01/20 00:26 Hydromorphone 1 Mg/1 Ml Inj IV Q3H PRN Pain , Severe (7-10) Levofloxacin/Dextrose 750 mg in 150 mls @ 100 mls/hr 10/01/20 10:00 10/01/20 10:16 Levaquin 750mg/150ml IV 100 mls/hr Q24HR PATTIE Administration Protocol Levetiracetam 750 mg 10/01/20 00:30 10/01/20 22:08 Levetiracetam 500 Mg Tab PO 750 mg BID PATTIE Administration Lisinopril 20 mg 10/01/20 10:00 10/01/20 10:19 Lisinopril 20 Mg Tab PO 20 mg DAILY PATTIE Administration Methylprednisolone Sodium Succinate 80 mg 10/01/20 10:00 10/02/20 02:20 Methylprednisolone Sod Succinate 125 Mg/2 Ml Inj IV 80 mg Q8H PATTIE Administration Metoclopramide HCl 10 mg 10/01/20 00:26 Metoclopramide 10 Mg/2 Ml Inj IV Q6H PRN Nausea And Vomiting Miscellaneous Medication 2 each 10/01/20 22:00 10/01/20 23:37 Clobazam 10 Mg Tablets PO 2 each QHS PATTIE Administration Multivitamins 1 each 10/01/20 10:00 10/01/20 10:19 Multivitamins ,Therapeutic Tab PO 1 each DAILY PATTIE Administration Ondansetron HCl 4 mg 10/01/20 00:26 Ondansetron 4 Mg/2 Ml Inj IV Q8H PRN Nausea And Vomiting Oxycodone/Acetaminophen 1 tab 10/01/20 00:26 Oxycodone /Acetaminophen 5-325mg Tab PO Q6H PRN Pain, Moderate (4-6) Pravastatin Sodium 40 mg 10/01/20 10:00 10/01/20 10:18 Pravastatin 40 Mg Tab PO 40 mg DAILY PATTIE Administration Propranolol HCl 40 mg 10/01/20 01:00 10/01/20 22:08 Propranolol 40 Mg Tab PO 40 mg BID PATTIE Administration Sodium Chloride 10 ml 10/01/20 01:00 10/01/20 22:09 Sodium Chloride 0.9% 10 Ml Flush Syringe IV 10 ml BID PATTEI Administration Sodium Chloride 10 ml 10/01/20 00:26 Sodium Chloride 0.9% 10 Ml Flush Syringe IV PRN PRN LINE FLUSH Nutrition/Malnutrition Assess - Dietary Evaluation Nutrition/Malnutrition Findings: Nutrition Notes Start: 10/01/20 15:55 Freq: Status: Active Protocol: Document 10/01/20 15:55 MK (Rec: 10/01/20 15:57 MK [id number]) Nutrition Notes 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 Per RN, pt without TF or TPN and no skin issues. RN states pt eating 100% of meals . Hadley score 18. Pt height 8 feet 8 inches causing low BMI , likely error. Nutrition Intervention Revisit per MD consult or patient Sign Off request:
[2020-10-02] MEDS: FAMOTIDINE 20 MG TAB PO SCH ×2 (09:05→21:23)
[2020-10-02] MEDS: levETIRAcetam 500 MG TAB PO SCH ×2 (09:05→21:23)
[2020-10-02] MEDS: MULTIVITAMINS ,THERAPEUTIC TAB PO SCH (09:05)
[2020-10-02] MEDS: CALCIUM CARBONATE 648 MG TAB PO SCH ×2 (09:06→21:22)
[2020-10-02] MEDS: PROPRANOLOL 40 MG TAB PO SCH ×2 (09:06→21:25)
[2020-10-02] MEDS: carBAMazepine XR 200 MG TAB PO SCH ×2 (09:06→21:23)
[2020-10-02] MEDS: amLODIPine 5 MG TAB PO SCH (09:07)
[2020-10-02] MEDS: LISINOPRIL 20 MG TAB PO SCH (09:07)
[2020-10-02] MEDS: HEPARIN 5,000 UNIT/1 ML VIAL SUB-Q SCH ×2 (09:18→21:21)
[2020-10-02] MEDS: PRAVASTATIN 40 MG TAB PO SCH (09:44)
--- NOTE | 2020-10-02 10:21 | Progress Note ---
Assessment and Plan TPatient alert, awake. Resting on 2 litres o2. O2 saturation 99%. No acute respiratory distress. Patient afebrile. No leukocytosis. Chest xray done 09/30/20 reported mild pulmonary vascular congestion. Patients Hester virus PCR negative. ABG on 2 litres O2. ABG pH 7.333 pH Units (7.350-7.450) L 09/30/20 18:05 ABG pCO2 68.5 mm Hg 09/30/20 18:05 ABG pO2 78.0 mm Hg (80.0-90.0) L 09/30/20 18:05 ABG O2 Saturation 95.2 % (95.0-99.0) 09/30/20 18:05 Patient Obese. BMI reported wrong. Recommend sleep study as out patient. Patient may have sleep apnea and Obesity hypoventilation. Recommend BIPAP during night time. - Patient Problems (1) Acute respiratory failure with hypoxia Current Visit: Yes Status: Acute Plan to address problem: O2 2 litres via nasal canula. BIPAP 14/8, rate 16, FIO2 35%. stand by in the room. albuterol/atrovent aerosol reatments q 6 hours. I/V Solumedrol, I/V Levaquin, S/C Lovenox, Famotidine. (2) Status asthmaticus Current Visit: Yes Status: Acute Plan to address problem: O2 2 litres via nasal canula. BIPAP 14/8, rate 16, FIO2 35%. stand by in the room. albuterol/atrovent aerosol reatments q 6 hours. I/V Solumedrol, I/V Levaquin, S/C Lovenox, Famotidine (3) Suspected COVID-19 virus infection Current Visit: Yes Status: Acute Plan to address problem: COVID PCR is negative. (4) Hypertension Current Visit: Yes Status: Chronic Qualifiers: Hypertension type: essential hypertension Qualified Code(s): I10 - Essential (primary) hypertension Plan to address problem: Management as per primary care. (5) Hypothyroidism (acquired) Current Visit: Yes Status: Chronic Plan to address problem: Management as per primary care. (6) Seizure disorder Current Visit: Yes Status: Chronic Plan to address problem: Management as per primary care and neurology. Subjective Date of service: 10/02/20 Interval history: Patient alert, awake. Resting on 2 litres o2. O2 saturation 99%. No acute respiratory distress. Patient afebrile. No leukocytosis. Chest xray done 09/30/20 reported mild pulmonary vascular congestion. Patients Hester virus PCR negative. ABG on 2 litres O2. ABG pH 7.333 pH Units (7.350-7.450) L 09/30/20 18:05 ABG pCO2 68.5 mm Hg 09/30/20 18:05 ABG pO2 78.0 mm Hg (80.0-90.0) L 09/30/20 18:05 ABG O2 Saturation 95.2 % (95.0-99.0) 09/30/20 18:05 Patient Obese. BMI reported wrong. Recommend sleep study as out patient. Patient may have sleep apnea and Obesity hypoventilation. Recommend BIPAP during night time. Objective Vital Signs - 12hr 10/01/20 10/02/20 10/02/20 22:59 05:52 08:07 Temperature 97.8 F 98.2 F Pulse Rate 74 68 Pulse Rate [ 88 Anterior Bilateral Throughout] Respiratory 18 18 Rate Respiratory 16 Rate [Anterior Bilateral Throughout] Blood Pressure 138/81 114/70 Blood Pressure [Right] O2 Sat by Pulse 99 100 Oximetry 10/02/20 10/02/20 10/02/20 08:34 09:06 09:07 Temperature 97.5 F L Pulse Rate 17 L 64 64 Pulse Rate [ Anterior Bilateral Throughout] Respiratory 17 Rate Respiratory Rate [Anterior Bilateral Throughout] Blood Pressure 117/79 117/79 Blood Pressure 111/54 [Right] O2 Sat by Pulse 100 Oximetry 10/02/20 10/02/20 09:17 10:00 Temperature Pulse Rate Pulse Rate [ Anterior Bilateral Throughout] Respiratory 20 Rate Respiratory Rate [Anterior Bilateral Throughout] Blood Pressure Blood Pressure [Right] O2 Sat by Pulse 97 99 Oximetry Constitutional: no acute distress, alert Eyes: non-icteric ENT: oropharynx moist Neck: supple, no JVD Effort: mildly labored Ascultation: Bilateral: diminished breath sounds Cardiovascular: regular rate and rhythm Gastrointestinal: normoactive bowel sounds, soft, non-tender Integumentary: normal Extremities: no cyanosis, no edema Neurologic: non-focal exam, pupils equal and round Psychiatric: depressed CBC and BMP: 10/02/20 04:23 10/02/20 04:23 ABG, PT/INR, D-dimer: ABG ABG pH 7.333 pH Units (7.350-7.450) L 09/30/20 18:05 ABG pCO2 68.5 mm Hg 09/30/20 18:05 ABG pO2 78.0 mm Hg (80.0-90.0) L 09/30/20 18:05 ABG O2 Saturation 95.2 % (95.0-99.0) 09/30/20 18:05 PT/INR, D-dimer D-Dimer < 135.00 ng/mlDDU (0-234) 09/30/20 17:15 Abnormal lab findings: Abnormal Labs 09/30/20 09/30/20 09/30/20 17:15 17:15 17:15 Hgb 14.7 H Hct 44.0 H MCH Lymph % (Auto) [place] % (Auto) 10.4 H Lymph # (Auto) Seg Neutrophils % ABG pH ABG pO2 ABG HCO3 ABG Base Excess Oxyhemoglobin Sodium 136 L Chloride 95.0 L Carbon Dioxide 35 H Glucose 106 H 107 H C-Reactive Protein 1.70 H Albumin 09/30/20 10/02/20 10/02/20 18:05 04:23 04:23 Hgb Hct MCH 33 H Lymph % (Auto) 9.4 L [place] % (Auto) Lymph # (Auto) 0.8 L Seg Neutrophils % 83.4 H ABG pH 7.333 L ABG pO2 78.0 L ABG HCO3 35.6 H ABG Base Excess 7.1 H Oxyhemoglobin 92.8 L Sodium 136 L Chloride 95.5 L Carbon Dioxide 32 H Glucose 115 H C-Reactive Protein Albumin 3.8 L
--- NOTE | 2020-10-02 11:25 | XRay Report ---
XR chest 1V ap INDICATION / CLINICAL INFORMATION: SHORTNESS OF BREATH. COMPARISON: 09/30/2020 FINDINGS: SUPPORT DEVICES: Neurostimulator generator pack overlies the left chest wall. HEART /PULMONARY VASCULATURE: Pulmonary vasculature congestion is unchanged. LUNGS / PLEURA: Low lung volumes remain. Perihilar opacities are unchanged. No new or increasing cons olidation. No sizable pleural effusion. No pneumothorax. ADDITIONAL FINDINGS: No significant additional findings. IMPRESSION: Stable appearance of the chest. Signer Name: Sampson Lund MD Signed: 10/02/2020 11:20 AM Workstation Name: [id number]
[2020-10-02] MEDS: CLOBAZAM 10 MG PO SCH (22:30)
[2020-10-03] MEDS: methylPREDNISolone Sod Succinate 125 MG/2 ML INJ IV SCH ×2 (01:20→10:49)
[2020-10-03 07:12] VITALS: BP 140/78
[2020-10-03] MEDS: IPRATROPIUM/ALBUTEROL SULFATE 3 ML AMPUL.NEB IH SCH ×2 (08:43→08:50)
--- NOTE | 2020-10-03 08:44 | Discharge Summary ---
Providers - Providers Date of Admission: 10/01/20 16:24 Attending physician: PRASAD MATTSON MD 10/01/20 00:26 Consult to Physician [CONS] Routine Comment: Consulting Provider: CECE ROMAN Physician Instructions: Reason For Exam: Status asthmaticus 10/01/20 10:11 Occupational Therapy Evaluate and Treat [CONS] Routine Comment: Reason For Exam: debility Physical Therapy Evaluation and Treat [CONS] Routine Comment: Reason For Exam: debility 10/01/20 10:12 Consult to Physician [CONS] Routine Comment: Consulting Provider: MAHSA UGALDE Physician Instructions: Reason For Exam: repeated seizures Primary care physician: [employer]ST CONTROLLER ASSISTANT Hospitalization Condition: Stable Hospital course: 55-year-old female with history of asthma and seizure disorder, cognitive delay and obstructive sleep apnea and hypothyroidism comes in for increasing shortness of breath and for 1 day. Patient was hypoxic at 88% on room air. Oxygen saturation improved to 100% on 3 L nasal cannula oxygen. Patient was admitted to [facility] recently. Patient has significant work of breathing and increased respiratory rate of 28 breaths/min. No fever. No exposure to coronavirus. ED physician was able to obtain further information from the patient's mom who is the primary caregiver: Patient had trouble breathing today. Mother gave patient nebulizer treatment. Patient still had persistent work of breathing with hypoxia 88% on room air. Oxygen saturation improved to 100% on 3 L nasal cannula. Patient has been admitted to [facility] on previous occasion. Patient was only able to give 1 word answers to questions. She states "breathing" and "headache". 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 Per mother she is bedbound due repeated seizure which throws her down to the floor, they do some exercise with her but has to be monitor closely. Continue evaluating for COVID-19. BMI listed on the [employer] is incorrect. No evidence of malnutrition noted. No new seizure disorder. Will obtain Echocardiogram. Per mother she has Nebulizers at home. Aspiration precaution. I have discussed with the mother in detail will obtain PT OT evaluate for some Exercise is not necessary to assess ambulation. 2/: Continue supportive care. COVID19 RULED OUT. Neurology and Pulmonary input noted, awaiting EEG, AND MRI, Recheck CHEST XRAY, Echo reviewed. Will monitor oxygen saturation. Wean steroids. Mom refused MRI. Will continue weaning off oxygen today and anticipate discharge tomorrow if respiratory status improved. 2: Patient remains seizure free, oxygen saturation is improving at this time. ?Underlying panic attack, will plan discharge today and mom will continue to monitor. Hardware also precludes obtaining and MRI. outpatient Pulmonary input recommended. (1) Acute respiratory failure with hypoxia Current Visit: Yes Status: Acute Plan to address problem: Oxygen supplementation as necessary (2) Status asthmaticus Current Visit: Yes Status: Acute Plan to address problem: Nebulizer treatments every 3 as needed and [id number]. IV Solu-Medrol initiated. IV Levaquin initiated. Pulmonary consult requested. (3) Suspected COVID-19 virus infection Current Visit: Yes Status: Acute Plan to address problem: Ruled out. Unlikely. (4) Hypothyroidism (acquired) Current Visit: Yes Status: Chronic Plan to address problem: Continue Levoxyl and check TSH (5) Hypertension Current Visit: Yes Status: Chronic Qualifiers: Hypertension type: essential hypertension Qualified Code(s): I10 - Essential (primary) hypertension Plan to address problem: Continue antihypertensives and adjust medications (6) Seizure disorder Current Visit: Yes Status: Chronic Plan to address problem: Continue Keppra (7) Hyperlipidemia Current Visit: Yes Status: Chronic Qualifiers: Hyperlipidemia type: mixed hyperlipidemia Qualified Code(s): E78.2 - Mixed hyperlipidemia Plan to address problem: Continue statins Disposition: TO HOME OR SELFCARE Time spent for discharge: 35 MINS Core Measure Documentation - Palliative Care Palliative Care/ Comfort Measures: Not Applicable - Core Measures Any of the following diagnoses?: none Exam - Physical Exam Narrative exam: VITAL SIGNS: Reviewed. GENERAL: The patient appears normally developed, obese, vital signs as documented. HEAD: No signs of head trauma. EYES: Pupils are equal. Extraocular motions intact. EARS: Hearing grossly intact. MOUTH: Oropharynx is normal. NECK: No adenopathy, no JVD. CHEST: Chest with diminished breath sounds bilaterally. No wheezes, rales, or rhonchi. CARDIAC: Regular rate and rhythm. S1 and S2, without murmurs, gallops, or rubs. VASCULAR: No Edema. Peripheral pulses normal and equal in all extremities. ABDOMEN: Soft, non tender and non distended. No rebound or guarding, and no masses palpated. Bowel Sounds normal. MUSCULOSKELETAL: Good range of motion of all major joints. Extremities without clubbing, cyanosis or edema. NEUROLOGIC EXAM: Alert and oriented x 2 No focal sensory or strength deficits. Speech Delayed. Follows commands. PSYCHIATRIC: Mood normal. SKIN: detail exam as documented in skin assessment - Constitutional Vitals: Temp Pulse Resp BP Pulse Ox 97.9 F 64 18 140/78 96 10/03/20 07:08 10/03/20 07:08 10/03/20 07:08 10/03/20 07:08 10/03/20 07:08 Plan Activity: advance as tolerated, fall precautions, other (SEIZURE PRECAUTIONS ) Diet: low fat Special Instructions: record daily BP diary Additional Instructions: Continue to follow with primary Neurologist. Follow up with: PRIMARY MD OLEGARIO [Primary Care Provider] - 3-5 Days CECE ROMAN MD [Staff Physician] - 7 Days Prescriptions: Ipratropium/Albuterol Sulfate [DUONEB *Not for PRN Use*] 1 ampul IH Q12HRT #60 ampul.neb Famotidine [Pepcid] 20 mg PO DAILY #30 tablet Prednisone [predniSONE 5 mg (6-Day Pack, 21 Tabs)] 5 mg PO .TAPER #1 tab.ds.pk ALBUTEROL NEB's [Proventil 0.083% NEBS] 2.5 mg IH Q4HR PRN #90 nebu PRN Reason: Wheezing
[2020-10-03] MEDS: PROPRANOLOL 40 MG TAB PO SCH (09:38)
[2020-10-03] MEDS: FAMOTIDINE 20 MG TAB PO SCH (09:38)
[2020-10-03] MEDS: CALCIUM CARBONATE 648 MG TAB PO SCH (09:38)
[2020-10-03] MEDS: levETIRAcetam 500 MG TAB PO SCH (09:38)
[2020-10-03] MEDS: carBAMazepine XR 200 MG TAB PO SCH (09:39)
[2020-10-03] MEDS: amLODIPine 5 MG TAB PO SCH (09:39)
[2020-10-03] MEDS: PRAVASTATIN 40 MG TAB PO SCH (09:39)
[2020-10-03] MEDS: HEPARIN 5,000 UNIT/1 ML VIAL SUB-Q SCH (09:40)
[2020-10-03] MEDS: LISINOPRIL 20 MG TAB PO SCH (09:40)
[2020-10-03] MEDS: MULTIVITAMINS ,THERAPEUTIC TAB PO SCH (09:40)
== END 2020-10-03 12:05 | disposition home or self-care (01) | DRG 189 ==
LOC: ED 16:26 → 3A 18:38 → OBSVTOIN 10-01 16:24 → 3B 10-01 23:18 → UNDODISIN 10-02 18:02
PROVIDERS: ADMIT Internal Medicine; ATTEND Internal Medicine
PROC: 5A09357 Assistance with Respiratory Ventilation, Less than 24 Consecutive Hours, Continuous Positive Airway Pressure (ICD-10-PCS; principal; 2020-09-30)
PROC: 5A09357 Assistance with Respiratory Ventilation, Less than 24 Consecutive Hours, Continuous Positive Airway Pressure (ICD-10-PCS; 2020-10-01)
PROC: 5A09357 Assistance with Respiratory Ventilation, Less than 24 Consecutive Hours, Continuous Positive Airway Pressure (ICD-10-PCS; 2020-10-02)
DX: J96.01 Acute respiratory failure with hypoxia (principal); J45.902 Unspecified asthma with status asthmaticus; Z20.822 Contact with and (suspected) exposure to COVID-19; G47.33 Obstructive sleep apnea (adult) (pediatric); K21.9 Gastro-esophageal reflux disease without esophagitis; I10 Essential (primary) hypertension; M19.90 Unspecified osteoarthritis, unspecified site; G43.909 Migraine, unspecified, not intractable, without status migrainosus; G40.909 Epilepsy, unspecified, not intractable, without status epilepticus; E03.9 Hypothyroidism, unspecified; E78.2 Mixed hyperlipidemia; Z87.442 Personal history of urinary calculi; Z79.899 Other long term (current) drug therapy; Z88.0 Allergy status to penicillin
CPT/HCPCS: 36415; 71045; 80053; 82728; 82803; 82947; 83036; 83615; 83880; 84145; 84484; 85025; 85379; 86140; 87040; 93005; 93306; 94640; 94644; 94660; 94760; 96365; 96375; G0378; A9270-GY; J0456; J0696; J1100; J1644; J1956; J2930; U0003

== ENCOUNTER 2021-06-17 11:08 | Outpatient (CLI) | payer MEDICARE ==
[2021-06-17 11:54] LABS: ABG Base Excess 5.6 mmol/L (-2.0-3.0); ABG HCO3 32.6 mmol/L (20.0-26.0); ABG Methemoglobin 0.5 % (0.0-1.5); ABG Oxygen Saturation 97.7 % (95.0-99.0); ABG PCO2 59.5 mm Hg; ABG PH 7.357 pH Units (7.350-7.450); ABG PO2 110.7 mm Hg (80.0-90.0)
== END 2021-06-17 11:09 | disposition home or self-care (01) ==
LOC: LAB 11:08
PROVIDERS: ATTEND Internal Medicine Critical Care Medicine
DX: I27.20 Pulmonary hypertension, unspecified (principal); E66.2 Morbid (severe) obesity with alveolar hypoventilation
CPT/HCPCS: 82803